=== PATIENT | female | born 1945 | race Caucasian/White ===

== ENCOUNTER 2019-02-14 17:41 | Emergency (ER) | payer OTHER ==
--- OUTSIDE RECORDS SUMMARY | 2019-02-14 17:43 | XMS REPORT ---
:1945 Author Organization [facility] Address [address] [place] [address] Dr. Greer [address] [place] [id number] Care Team Providers Name Role Phone Unavailable Unavailable Unavailable Problems This patient has no known problems. Allergies, Adverse Reactions, Alerts This patient has no known allergies or adverse reactions. Medications This patient has no known medications.
[2019-02-14] MEDS ORDERED: ONDANSETRON 4 MG/2 ML VIAL ONE (18:42)
[2019-02-14] MEDS ORDERED: NA CHLORIDE 0.9% 1,000 ML ONE (18:42)
[2019-02-14 18:48] LABS: Absolute Lymphocytes (CBC) 0.7 K/uL (0.7-4.9); Basophils % 0.5 % (0-1.3); Hematocrit 43.6 % (36.0-45.0); Lymphocytes % 9.6 % (15.3-44.8); MPV 8.3 fL (7.6-11.3); RBC Red Blood Cell Count 4.65 M/uL (3.86-4.86)
[2019-02-14 19:05] LABS: Bilirubin Direct 0.2 mg/dL (0-0.2); Bilirubin Total 0.8 mg/dL (0.2-1.0); Potassium 4.3 mmol/L (3.5-5.1); Protein, Total 7.5 g/dL (6.4-8.2)
[2019-02-14 20:12] LABS: Urine Blood NEGATIVE (NEG); Urine Glucose NEGATIVE (NEG); Urine Protein NEGATIVE (NEG)
--- NOTE | 2019-02-14 20:22 | EDPHYS ---
Physician Documentation [facility] Name: Sultana Heck Age: 73 yrs Sex: Female : 1945 Arrival Date: 02/14/2019 Time: 17:43 Bed 25 Private MD: Darrel Menard ED Physician Gabriel Gaffney HPI: 02/14 18:29 This 73 yrs old Female presents to ER via Ambulatory with complaints of jmm Diarrhea. 18:29 The patient presents to the emergency department with nausea, diarrhea. Onset: The jmm symptoms/episode began/occurred gradually, 2 day(s) ago. Possible causes: unknown. The symptoms are aggravated by nothing. The symptoms are alleviated by nothing. Associated signs and symptoms: Pertinent negatives: abdominal pain, dysuria, fever. This is a 73 yea rold female with a history of DM, GERD, that presents to the ED with complaints of nausea, diarrhea, weakness beginning 2 days ago. Patient has taken OTC medications with no relief. Denies fever or chills. . 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 - Social history:: Smoking status: Patient/guardian denies using. - Ebola Screening: : No symptoms or risks identified at this time. ROS: 18:29 Constitutional: Negative for fever, chills, and weight loss, Cardiovascular: Negative jmm for chest pain, palpitations, and edema, Respiratory: Negative for shortness of breath, cough, wheezing, and pleuritic chest pain. 18:29 Back: Negative for injury and pain. 18:29 Abdomen/GI: Positive for nausea, diarrhea. 18:29 Neuro: Positive for weakness. 18:29 All other systems are negative. Exam: 18:29 Constitutional: This is a well developed, well nourished patient who is awake, alert, jmm and in no acute distress. Head/Face: atraumatic. Eyes: EOMI, no conjunctival erythema appreciated ENT: Moist Mucus Membranes Neck: Trachea midline, Supple Chest/axilla: Normal chest wall appearance and motion. Cardiovascular: Regular rate and rhythm. No edema appreciated Respiratory: Normal respirations, no respiratory distress appreciated 18:29 Back: Normal ROM Skin: General appearance color normal MS/ Extremity: Moves all extremities, no obvious deformities appreciated, no edema noted to the lower extremities Neuro: Awake and alert, normal gait Psych: Behavior is normal, Mood is normal, Patient is cooperative and pleasant 18:29 Abdomen/GI: Inspection: abdomen appears normal, Bowel sounds: normal, Palpation: abdomen is soft and non-tender, in all quadrants. Vital Signs: 17:53 BP 138 / 70; Pulse 83; Resp 16; Temp 98; Pulse Ox 95% ; Weight 76.2 kg; Height 5 ft. 4 sv in. (162.56 cm); 19:00 BP 146 / 65; Pulse 78; Resp 16; Pulse Ox 100% on R/A; tr5 20:19 BP 132 / 73; Pulse 73; Resp 16; Pulse Ox 99% on R/A; tr5 17:53 Body Mass Index 28.84 (76.20 kg, 162.56 cm) sv MDM: 18:10 Patient medically screened. [facility] 20:18 Data reviewed: vital signs, nurses notes. Counseling: I had a detailed discussion with [facility] the patient and/or guardian regarding: the historical points, exam findings, and any diagnostic results supporting the discharge/admit diagnosis, lab results, the need for outpatient follow up, to return to the emergency department if symptoms worsen or persist or if there are any questions or concerns that arise at home. ED course: Patient states feeling much better. Abdomen non tender to palpation. Labs normal. Patient is advised to follow up with pcp and otherwise given strict return precautions. Patient understood and agrees with the plan of care. . 02/14 18:11 Order name: Basic Metabolic Panel; Complete Time: 19:07 [facility] 02/14 18:11 Order name: CBC with Diff; Complete Time: 18:50 [facility] 02/14 18:11 Order name: Creatinine for Radiology; Complete Time: 19:05 [facility] 02/14 18:11 Order name: Hepatic Function; Complete Time: 19:07 [facility] 02/14 18:11 Order name: Lipase; Complete Time: 19:07 [facility] 02/14 19:18 Order name: Troponin (emerg Dept Use Only); Complete Time: 20:03 [facility] 02/14 18:11 Order name: IV Saline Lock; Complete Time: 18:44 [facility] 02/14 18:11 Order name: Labs collected and sent; Complete Time: 18:44 [facility] 02/14 19:11 Order name: Urine Dipstick-Ancillary (obtain specimen); Complete Time: 19:57 [facility] 02/14 19:20 Order name: EKG - Nurse/Tech; Complete Time: 19:57 [facility] 02/14 19:45 Order name: Urine Dipstick--Ancillary (enter results); Complete Time: 20:16 ar5 Administered Medications: 18:43 Drug: NS 0.9% 1000 ml Route: IV; Rate: 1 bolus; Site: left antecubital; tr5 19:00 Follow up: Response: No adverse reaction; IV Status: Completed infusion; IV Intake: tr5 1000ml 18:43 Drug: Zofran 4 mg Route: IVP; Site: left antecubital; tr5 19:20 Follow up: Response: Nausea is decreased tr5 Disposition: 02/15 07:31 Co-signature as Attending Physician, Gabriel Gaffney MD I agree with the assessment and kdr plan of care. Disposition: 02/14/19 20:20 Discharged to Home. Impression: Diarrhea, unspecified. - Condition is Stable. - Discharge Instructions: Food Choices to Help Relieve Diarrhea, Adult, Diarrhea, Adult. - Prescriptions for Zofran ODT 4 mg Oral tablet,disintegrating - place 1 tablet by TRANSLINGUAL route every 4-6 hours; 20 tablet. - Medication Reconciliation Form, Thank You Letter, Antibiotic Education, Prescription Opioid Use form. - Follow up: Darrel Menard MD; When: 2 - 3 days; Reason: Recheck today's complaints, Continuance of care, Re-evaluation by your physician. Signatures: Dispatcher [employer] Ami Morales RN RN sv Rittger, Kevin, MD MD kdr Mickail, Joel, PA PA jmm Rodriguez, Tommie, RN RN tr5 Corrections: (The following items were deleted from the chart) 02/14 20:50 20:20 02/14/2019 20:20 Discharged to Home. Impression: Diarrhea, unspecified. Condition tr5 is Stable. Forms are Medication Reconciliation Form, Thank You Letter, Antibiotic Education, Prescription Opioid Use. Follow up: Darrel Menard; When: 2 - 3 days; Reason: Recheck today's complaints, Continuance of care, Re-evaluation by your physician. aamir
--- NOTE | 2019-02-14 20:22 | ER ---
Nurse's Notes [facility] Name: Sultana Heck Age: 73 yrs Sex: Female : 1945 Arrival Date: 02/14/2019 Time: 17:43 Bed 25 Private MD: Darrel Menard Diagnosis: Diarrhea, unspecified Presentation: 02/14 17:51 Presenting complaint: Patient states: diarrhea and nausea x 2 days, unable to keep sv fluids down. Transition of care: patient was not received from another setting of care. Onset of symptoms was February 12, 2019. Risk Assessment: Do you want to hurt yourself or someone else? Patient reports no desire to harm self or others. 17:51 Method Of Arrival: Ambulatory sv 17:51 Acuity: DONTE 3 sv 18:00 Initial Sepsis Screen: Does the patient meet any 2 criteria?. Initial Sepsis Screen: tr5 Does the patient have a suspected source of infection? No. Patient's initial sepsis screen is negative. 20:50 Care prior to arrival: None. 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 - Social history:: Smoking status: Patient/guardian denies using. - Ebola Screening: : No symptoms or risks identified at this time. Screenin:00 Abuse screen: Denies threats or abuse. Nutritional screening: No deficits noted. tr5 Tuberculosis screening: No symptoms or risk factors identified. Fall Risk None identified. Assessment: 18:00 General: Appears uncomfortable, Behavior is calm, cooperative, appropriate for age. tr5 Pain: Denies pain. 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 Cardiovascular: Heart tones present Capillary refill < 3 seconds Pulses are all present. Edema is absent. Respiratory: Airway is patent Respiratory effort is even, unlabored, Respiratory pattern is regular, symmetrical. GI: Reports diarrhea, nausea. : No signs and/or symptoms were reported regarding the genitourinary system. EENT: No signs and/or symptoms were reported regarding the EENT system. Derm: No signs and/or symptoms reported regarding the dermatologic system. Musculoskeletal: No signs and/or symptoms reported regarding the musculoskeletal system. 19:19 Reassessment: Troponin lab add on per Jose. sr5 20:17 Reassessment: Patient appears in no apparent distress at this time. Patient and/or tr5 family updated on plan of care and expected duration. Pain level reassessed. Patient is alert, oriented x 3, equal unlabored respirations, skin warm/dry/pink. Vital Signs: 17:53 BP 138 / 70; Pulse 83; Resp 16; Temp 98; Pulse Ox 95% ; Weight 76.2 kg; Height 5 ft. 4 sv in. (162.56 cm); 19:00 BP 146 / 65; Pulse 78; Resp 16; Pulse Ox 100% on R/A; tr5 20:19 BP 132 / 73; Pulse 73; Resp 16; Pulse Ox 99% on R/A; tr5 17:53 Body Mass Index 28.84 (76.20 kg, 162.56 cm) sv ED Course: 17:43 Patient arrived in ED. ag5 17:44 Darrel Menard MD is Private Physician. ag5 17:44 Ervin Engle, RN is Primary Nurse. tr5 17:45 Baldo Garcia PA is [facility]. [facility] 17:45 Gabriel Gaffney MD is Attending Physician. [facility] 17:52 Triage completed. sv 18:00 Placed in gown. Bed in low position. Call light in reach. tr5 18:00 Arm band placed on Patient placed. tr5 18:34 Initial lab(s) drawn, by me, sent to lab. Inserted saline lock: 22 gauge in left tr5 antecubital area, using aseptic technique. 19:25 Urine collected: clean catch specimen, clear, margie colored. jp3 19:25 Patient maintains SpO2 saturation greater than 95% on room air. jp3 19:57 EKG done, by ED staff, reviewed by Baldo HARRINGTON. jp3 19:57 Warm blanket given. Pillow given. Verbal reassurance given. Pulse ox on. NIBP on. jp3 20:20 Darrel Menard MD is Referral Physician. [facility] 20:49 No provider procedures requiring assistance completed. IV discontinued. tr5 Administered Medications: 18:43 Drug: NS 0.9% 1000 ml Route: IV; Rate: 1 bolus; Site: left antecubital; tr5 19:00 Follow up: Response: No adverse reaction; IV Status: Completed infusion; IV Intake: tr5 1000ml 18:43 Drug: Zofran 4 mg Route: IVP; Site: left antecubital; tr5 19:20 Follow up: Response: Nausea is decreased tr5 Intake: 19:00 IV: 1000ml; Total: 1000ml. tr5 Outcome: 20:20 Discharge ordered by . [facility] 20:49 Discharged to home ambulatory. tr5 20:49 Condition: stable 20:49 Discharge instructions given to patient, family, Instructed on discharge instructions, follow up and referral plans. medication usage, Demonstrated understanding of instructions, follow-up care, medications, Prescriptions given X 1. 20:50 Patient left the ED. tr5 Signatures: Ami Jones, RN RN Baldo Faulkner PA PA jmm Resecker, Sam RN RN 5 Terry Wong 3 Elisa Betancourt Ervin Blackburn, DEVYN RN tr5
[2019-02-14 20:58] VITALS: TEMP 98
[2019-02-14 21:01] VITALS: BP 132/73; O2SAT 99
--- NOTE | 2019-02-15 13:49 | EKG ---
Test Date: 2019-02-14 Test Time: 19:50:50 Cuff Runner: LATISHA MEASUREMENT RESULTS: Intervals: Rate: 70 OH: 152 QRSD: 78 QT: 396 QTc: 427 Dewitt: P: 12 OH: 152 QRS: 58 T: 77 INTERPRETIVE STATEMENTS: Normal sinus rhythm Normal ECG Compared to ECG 04/24/2017 10:39:04 Myocardial infarct finding no longer present Electronically Signed On 02-15-19 13:47:03 KNOTTER by Thang Fox
== END 2019-02-14 20:50 | disposition home or self-care (01) ==
LOC: ER 17:41
DX: R19.7 Diarrhea, unspecified (principal); I10 Essential (primary) hypertension; Z85.828 Personal history of other malignant neoplasm of skin; Z88.5 Allergy status to narcotic agent; Z88.8 Allergy status to other drugs, medicaments and biological substances
CPT/HCPCS: 93005; 85025; 80048; 36415; 80076; 81003; 84484; 83690; 96374; 99284; J7030; J2405

== ENCOUNTER 2019-04-17 10:03 | Emergency (ER) | payer OTHER ==
--- OUTSIDE RECORDS SUMMARY | 2019-04-17 10:05 | XMS REPORT ---
:1945 [facility] Address [address] [place] [address] Dr. Gre[address] [place] [id number] Care Team Providers Name Role Phone Unavailable Unavailable Unavailable Problems This patient has no known problems. Allergies, Adverse Reactions, Alerts This patient has no known allergies or adverse reactions. Medications This patient has no known medications.
[2019-04-17] MEDS ORDERED: TETANUS & DIPHTHERIA TOX,ADULT 0.5 ML VIAL ONE (12:23)
--- NOTE | 2019-04-17 12:40 | RAD REPORT ---
EXAM DESCRIPTION: CT - [id number] - 04/17/2019 12:27 pm CLINICAL HISTORY: Trauma, head and neck injury. PAIN COMPARISON: No comparisons TECHNIQUE: Axial 5 mm thick images of the head were obtained. Axial 2 mm thick images of the cervical spine were obtained with sagittal and coronal reconstruction images generated and reviewed. All CT scans are performed using dose optimization technique as appropriate and may include automated exposure control or mA/KV adjustment according to patient size. FINDINGS: CT HEAD WITHOUT CONTRAST: No acute hemorrhage, hydrocephalus or extra-axial collection is identified.Mild generalized brain atr ophy is present with mild periventricular and deep white matter chronic microvascular ischemic change s.No areas of brain edema or midline shift. The paranasal sinuses and mastoids are clear.The calvarium is intact. CT CERVICAL SPINE WITHOUT CONTRAST: No fracture or subluxation.Moderate lower cervical spondylosis.No prevertebral soft tissues swelling is identified. IMPRESSION: No acute intracranial or cervical spine findings. Moderate lower cervical degenerative changes.
--- NOTE | 2019-04-17 12:46 | RAD REPORT ---
EXAM DESCRIPTION: CT - CTFB CLINICAL HISTORY: FACIAL PAIN Fall, facial trauma and injury. COMPARISON: No comparisons TECHNIQUE: Axial 2 mm thick images of the face were obtained with sagittal and coronal reconstructio n images. All CT scans are performed using dose optimization technique as appropriate and may include automated exposure control or mA/KV adjustment according to patient size. FINDINGS: No acute facial bone fracture is seen.The mandible is intact. The globes and orbital contents are grossly unremarkable.The paranasal sinuses and mastoids are clear . IMPRESSION: Negative for facial bone fracture.
--- NOTE | 2019-04-17 13:03 | ER ---
Nurse's Notes [facility] Name: Sultana Heck Age: 73 yrs Sex: Female : 1945 Arrival Date: 04/17/2019 Time: 10:08 Bed 23 Private MD: Darrel Menard Diagnosis: Fall on same level from slipping, tripping and stumbling;Contusion of nose;Abrasion of nose;Abrasion of knee;Abrasion of left hand Presentation: 04/16 10:31 Chief complaint: Patient states: Tripped and fell forward. Abrasion on bridge of nose, ca1 L and R hand, R knee. Denies LOC, not on blood thinners. Coronavirus screen: The patient has NOT traveled to a country currently being monitored by the CDC within the last 14 days. The patient has NOT had contact with any known and/or suspected case of coronavirus. Ebola Screen: Patient negative for fever greater than or equal to 101.5 degrees Fahrenheit, and additional compatible Ebola Virus Disease symptoms Patient denies exposure to infectious person. Patient denies travel to an Ebola-affected area in the 21 days before illness onset. No symptoms or risks identified at this time. Initial Sepsis Screen: Does the patient meet any 2 criteria? No. Patient's initial sepsis screen is negative. Does the patient have a suspected source of infection? No. Patient's initial sepsis screen is negative. Risk Assessment: Do you want to hurt yourself or someone else? Patient reports no desire to harm self or others. Onset of symptoms was April 17, 2019. 10:31 Method Of Arrival: Ambulatory ca1 10:31 Acuity: DONTE 4 ca1 Triage Assessment: 10:39 General: Appears in no apparent distress. comfortable, Behavior is calm, cooperative, ca1 appropriate for age. Pain:. Neuro: Level of Consciousness is awake, alert, obeys commands, Oriented to person, place, time, situation. Historical: - Allergies: 10:39 Morphine; ca1 10:39 Reglan; ca1 - Home Meds: 10:39 amlodipine 5 mg tab 1 tab once daily for Hypertension [Active]; levothyroxine 88 mcg ca1 oral tab 1 tab once daily [Active]; metformin 500 mg Oral Tb24 1 tab 2 times per day [Active]; Prilosec 40 mg Oral cpDR 1 cap 2 times per day [Active]; Lipitor 40 mg oral tab 1 tab once daily [Active]; metoprolol tartrate 25 mg Oral tab 1 tab 2 times per day [Active]; aspirin 81 mg Oral chew 1 tab once daily [Active]; Cymbalta 30 mg oral cpDR 1 cap once daily [Active]; donepezil 5 mg oral tab 1 tab once daily [Active]; - PMHx: 10:39 arthritis in shel[place] feet; Depression; Diabetes - NIDDM; GERD; hemmoragic pancreatitis; ca1 Hypertension; Hypothyroidism; Hyperlipidemia; left trigeminal neuralgia; TIA; - PSHx: 10:39 Appendectomy; Tonsillectomy; Hysterectomy; Cholecystectomy; tumor removal from jaw; ca1 hand R; back surgery; bunionectomy; tummy tuck; 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 - Social history:: Smoking status: Patient denies any tobacco usage or history of. Screenin:27 Abuse screen: Denies threats or abuse. Denies injuries from another. Nutritional iw screening: No deficits noted. Tuberculosis screening: No symptoms or risk factors identified. Fall Risk Fall in past 12 months (25 points). Assessment: 12:26 General: Appears in no apparent distress. Behavior is calm, cooperative. Pain: iw Complains of pain in face and nose. Neuro: Level of Consciousness is awake, alert, obeys commands, Oriented to person, place, time, Moves all extremities. Full function Denies weakness dizziness. Cardiovascular: Patient's skin is warm and dry. Respiratory: Respiratory effort is even, unlabored, Respiratory pattern is regular, symmetrical. GI: No signs and/or symptoms were reported involving the gastrointestinal system. : No signs and/or symptoms were reported regarding the genitourinary system. Derm: Skin is healthy with good turgor. Musculoskeletal: Range of motion: intact in all extremities. Injury Description: Abrasion sustained to bridge of nose. Vital Signs: 10:31 BP 139 / 67; Pulse 66; Resp 17 S; Temp 97.1(TE); Pulse Ox 99% on R/A; Weight 74.84 kg ca1 (R); Height 5 ft. 4 in. (162.56 cm) (R); Pain 4/10; 12:14 BP 145 / 67 LA Sitting (auto/reg); Pulse 57; Temp 98(O); Pulse Ox 99% on R/A; jp3 10:31 Body Mass Index 28.32 (74.84 kg, 162.56 cm) ca1 ED Course: 10:08 Patient arrived in ED. mr 10:09 Darrel Menard MD is Private Physician. mr 10:35 Triage completed. ca1 10:39 Arm band placed on right wrist. ca1 11:59 Chante Perales FNP-C is [facility]. kb 11:59 Gabriel Gaffney MD is Attending Physician. kb 12:09 Corazon Bills, RN is Primary Nurse. iw 12:15 Patient maintains SpO2 saturation greater than 95% on room air. jp3 12:16 Bed in low position. Call light in reach. Warm blanket given. Verbal reassurance given. jp3 Pulse ox on. NIBP on. 12:29 CT Head C Spine In Process Unspecified. EDMS 12:29 CT Facial Bones W/O Con In Process Unspecified. EDMS 13:34 Dressings: non-adherent dressing x 1 nose. Wound care: to abrasion, located on bridge jp3 of nose was cleaned with soap and water, Patient tolerated well. 13:34 No provider procedures requiring assistance completed. Patient did not have IV access iw during this emergency room visit. Administered Medications: 12:22 Drug: Tetanus-Diphtheria Toxoid Adult 0.5 ml {Log Hauler: [employer]. Exp: iw 09/15/2019. Lot #: [id number]. } Route: IM; Site: left deltoid; Outcome: 13:02 Discharge ordered by . kb 13:34 Discharged to home ambulatory, with family. iw 13:34 Condition: good 13:34 Discharge instructions given to patient, family, Instructed on discharge instructions, follow up and referral plans. Demonstrated understanding of instructions, follow-up care. 13:35 Patient left the ED. iw Signatures: Dispatcher [employer] EDMS Chante Perales FNP-C FNP-Ckb Rivera, Mary Corazon Bills, RN RN iw Terry Wong jp3 Saira Brown RN RN ca1
--- NOTE | 2019-04-17 13:03 | EDPHYS ---
Physician Documentation [facility] Name: Sultana Heck Age: 73 yrs Sex: Female : 1945 Arrival Date: 04/17/2019 Time: 10:08 Bed 23 Private MD: Darrel Menard ED Physician Gabriel Gaffney HPI: 04/16 15:46 This 73 yrs old Female presents to ER via Ambulatory with complaints of Fall kb Injury. 15:46 Details of fall: The patient fell from an upright position, while walking. Onset: The kb symptoms/episode began/occurred just prior to arrival. Associated injuries: The patient sustained injury to the head, abrasion, contusion, medial aspect of left hand, abrasion, right knee, abrasion. Severity of symptoms: At their worst the symptoms were mild, in the emergency department the symptoms are unchanged. The patient has not experienced similar symptoms in the past. The patient has not recently seen a physician. Historical: - Allergies: 10:39 Morphine; ca1 10:39 Reglan; ca1 - Home Meds: 10:39 amlodipine 5 mg tab 1 tab once daily for Hypertension [Active]; levothyroxine 88 mcg ca1 oral tab 1 tab once daily [Active]; metformin 500 mg Oral Tb24 1 tab 2 times per day [Active]; Prilosec 40 mg Oral cpDR 1 cap 2 times per day [Active]; Lipitor 40 mg oral tab 1 tab once daily [Active]; metoprolol tartrate 25 mg Oral tab 1 tab 2 times per day [Active]; aspirin 81 mg Oral chew 1 tab once daily [Active]; Cymbalta 30 mg oral cpDR 1 cap once daily [Active]; donepezil 5 mg oral tab 1 tab once daily [Active]; - PMHx: 10:39 arthritis in [place] feet; Depression; Diabetes - NIDDM; GERD; hemmoragic pancreatitis; ca1 Hypertension; Hypothyroidism; Hyperlipidemia; left trigeminal neuralgia; TIA; - PSHx: 10:39 Appendectomy; Tonsillectomy; Hysterectomy; Cholecystectomy; tumor removal from jaw; ca1 hand R; back surgery; bunionectomy; tummy tuck; 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 - Social history:: Smoking status: Patient denies any tobacco usage or history of. ROS: 15:45 Constitutional: Negative for fever, chills, and weight loss, Neck: Negative for injury, kb pain, and swelling, Cardiovascular: Negative for chest pain, palpitations, and edema, Respiratory: Negative for shortness of breath, cough, wheezing, and pleuritic chest pain, Abdomen/GI: Negative for abdominal pain, nausea, vomiting, diarrhea, and constipation, Back: Negative for injury and pain, MS/Extremity: Negative for injury and deformity, Neuro: Negative for headache, weakness, numbness, tingling, and seizure. 15:45 Skin: Positive for abrasion(s), avulsion, of the right knee and medial aspect of left hand and bridge of nose. Exam: 15:44 Constitutional: This is a well developed, well nourished patient who is awake, alert, kb and in no acute distress. Head/Face: Normocephalic, atraumatic. Eyes: Pupils equal round and reactive to light, extra-ocular motions intact. Lids and lashes normal. Conjunctiva and sclera are non-icteric and not injected. Cornea within normal limits. Periorbital areas with no swelling, redness, or edema. ENT: Nares patent. No nasal discharge, no septal abnormalities noted. Tympanic membranes are normal and external auditory canals are clear. Oropharynx with no redness, swelling, or masses, exudates, or evidence of obstruction, uvula midline. Mucous membranes moist. Neck: Trachea midline, no thyromegaly or masses palpated, and no cervical lymphadenopathy. Supple, full range of motion without nuchal rigidity, or vertebral point tenderness. No Meningismus. Chest/axilla: Normal chest wall appearance and motion. Nontender with no deformity. No lesions are appreciated. Cardiovascular: Regular rate and rhythm with a normal S1 and S2. No gallops, murmurs, or rubs. Normal PMI, no JVD. No pulse deficits. Respiratory: Lungs have equal breath sounds bilaterally, clear to auscultation and percussion. No rales, rhonchi or wheezes noted. No increased work of breathing, no retractions or nasal flaring. Abdomen/GI: Soft, non-tender, with normal bowel sounds. No distension or tympany. No guarding or rebound. No evidence of tenderness throughout. Back: No spinal tenderness. No costovertebral tenderness. Full range of motion. MS/ Extremity: Pulses equal, no cyanosis. Neurovascular intact. Full, normal range of motion. Neuro: Awake and alert, GCS 15, oriented to person, place, time, and situation. Cranial nerves II-XII grossly intact. Motor strength 5/5 in all extremities. Sensory grossly intact. Cerebellar exam normal. Normal gait. 15:44 Skin: injury, abrasion(s), small abrasion noted, of the medial aspect of left hand and right knee, avulsion(s), a small of the bridge of nose, contusion(s), that are superficial, of the bridge of nose. Vital Signs: 10:31 BP 139 / 67; Pulse 66; Resp 17 S; Temp 97.1(TE); Pulse Ox 99% on R/A; Weight 74.84 kg ca1 (R); Height 5 ft. 4 in. (162.56 cm) (R); Pain 4/10; 12:14 BP 145 / 67 LA Sitting (auto/reg); Pulse 57; Temp 98(O); Pulse Ox 99% on R/A; jp3 10:31 Body Mass Index 28.32 (74.84 kg, 162.56 cm) ca1 MDM: 12:00 Patient medically screened. kb 12:59 Data reviewed: vital signs, nurses notes. Data interpreted: Pulse oximetry: on room air kb is 99 %. Interpretation: normal. Counseling: I had a detailed discussion with the patient and/or guardian regarding: the historical points, exam findings, and any diagnostic results supporting the discharge/admit diagnosis, radiology results, the need for outpatient follow up, a family practitioner, to return to the emergency department if symptoms worsen or persist or if there are any questions or concerns that arise at home. 04/16 12:07 Order name: CT Head C Spine; Complete Time: 12:58 kb 04/16 12:07 Order name: CT Facial Bones W/O Con; Complete Time: 12:58 kb Administered Medications: 12:22 Drug: Tetanus-Diphtheria Toxoid Adult 0.5 ml {Rn Transfer: [employer]. Exp: iw 09/15/2019. Lot #: [id number]. } Route: IM; Site: left deltoid; Disposition: 16:26 Co-signature as Attending Physician, Gabriel Gaffney MD I agree with the assessment and kdr plan of care. Disposition: 04/17/19 13:02 Discharged to Home. Impression: Fall on same level from slipping, tripping and stumbling, Contusion of nose, Abrasion of nose, Abrasion of knee, Abrasion of left hand. - Condition is Stable. - Discharge Instructions: Abrasion, [id number], Facial or Scalp Contusion, [id number]. - Medication Reconciliation Form, Thank You Letter, Antibiotic Education, Prescription Opioid Use form. - Follow up: Emergency Department; When: As needed; Reason: Worsening of condition. Follow up: Private Physician; When: 2 - 3 days; Reason: Recheck today's complaints, Continuance of care, Re-evaluation by your physician. Signatures: Dispatcher [employer] EDMS Chante Perales, ELASTIC ATTACHER CHAINSTITCH-C ELASTIC ATTACHER CHAINSTITCH-Gabriel Salcido MD MD [facility] Corazon Bills RN RN iw Saira Brown RN RN ca1 Corrections: (The following items were deleted from the chart) 13:35 13:02 04/17/2019 13:02 Discharged to Home. Impression: Fall on same level from iw slipping, tripping and stumbling; Contusion of nose; Abrasion of nose; Abrasion of knee; Abrasion of left hand. Condition is Stable. Forms are Medication Reconciliation Form, Thank You Letter, Antibiotic Education, Prescription Opioid Use. Follow up: Emergency Department; When: As needed; Reason: Worsening of condition. Follow up: Private Physician; When: 2 - 3 days; Reason: Recheck today's complaints, Continuance of care, Re-evaluation by your physician. kb 15:46 15:44 Skin: injury, abrasion(s), small abrasion noted, of the medial aspect of left kb hand and right knee, avulsion(s), a small of the bridge of nose, kb
[2019-04-17 13:46] VITALS: O2SAT 99
[2019-04-17 14:19] VITALS: BP 145/67; TEMP 98
== END 2019-04-17 13:35 | disposition home or self-care (01) ==
LOC: ER 10:03
DX: S00.31XA Abrasion of nose, initial encounter (principal); S80.212A Abrasion, left knee, initial encounter; S60.512A Abrasion of left hand, initial encounter; W01.0XXA Fall on same level from slipping, tripping and stumbling without subsequent striking against object, initial encounter; Y93.01 Activity, walking, marching and hiking; Y92.9 Unspecified place or not applicable; Z79.82 Long term (current) use of aspirin; Z85.828 Personal history of other malignant neoplasm of skin; I10 Essential (primary) hypertension; E11.9 Type 2 diabetes mellitus without complications; F32.9 Major depressive disorder, single episode, unspecified; E03.9 Hypothyroidism, unspecified
CPT/HCPCS: 70450; 70486; 72125; 76377; 90471; 90714; 99284

== ENCOUNTER 2020-12-30 08:55 | Emergency (ER) | payer OTHER ==
--- OUTSIDE RECORDS SUMMARY | 2020-12-30 08:58 | XMS REPORT | Clinical Summary ---
:1945 Author Organization [facility] MD [facility] Address [address] [place] [address] Care Team Providers Name Role Phone Kristina Lua MD Primary Care Provider Darrel Menard MD Unavailable Allergies Active Allergy Reactions Severity Noted Date Comments Morphine Sulfate Other (See Comments) 10/18/2016 Sev er vomiting Metoclopramide Hcl Other (See Comments) 10/18/2016 N ausea, drowsy, stomach cramps Medications Medication Sig Dispensed Refills Start Date End Date Status atorvastatin (LIPITOR) Take 40 mg by 0 08/06/2016 Active 20 mg tablet mouth daily. amLODIPine (NORVASC) 5 Take 1 tablet by 0 09/21/2016 Active mg tablet mouth daily. omeprazole (PriLOSEC) Take 40 mg by 0 Active 40 MG capsule mouth 2 (two) times a day before meals. levothyroxine Take 112 mcg by 0 Active (SYNTHROID, LEVOTHROID) mouth daily. 125 mcg tablet metoprolol tartrate Take 12.5 mg by 0 Active (LOPRESSOR) 25 mg mouth twice tablet daily. b complex vitamins Take 1 tablet by 0 Active tablet mouth daily. biotin 5,000 mcg TbDL Dissolve 1 tablet 0 Active on the tongue daily. fish oil-omega-3 fatty Take 1 g by mouth 0 Active acids 300-1,000 mg twice daily. capsule ergocalciferol (VITAMIN Take 50,000 Units 0 Active D2) 50,000 units by mouth. capsule cholecalciferol, Take 1,000 Units 0 Active vitamin D3, 1,000 units by mouth daily. tablet vitamin E 1,000 units Take 1,000 Units 0 Active capsule by mouth daily. metFORMIN Take 1 tablet by 6 10/26/2016 Ac tive (GLUCOPHAGE-XR) 500 mg mouth 2 (two) 24 hr tablet times a day with meals. ibuprofen Take 200 mg by 0 Activ e (ADVIL,MOTRIN) 200 mg mouth as needed. tablet DULoxetine (CYMBALTA) Take 30 mg by 0 09/22/2017 Active 30 mg capsule mouth daily. melatonin 3 mg tablet 3 mg nightly as 0 Active needed. psyllium, aspartame, Take by mouth. 0 Active (METAMUCIL) powd powder aspirin 81 mg EC tablet Take 81 mg by 0 Active mouth daily. multivitamin Take 1 tablet by 0 Active (THERAGRAN) tablet mouth daily. Active Problems Problem Noted Date Fatty liver Mass of soft tissue Overview: Calcified Soft Tissue Masses in the Smal l bowel mesentery Encounters Date Type Specialty Care Team Description 05/23/2020 Orders Only Infectious Diseases Flaco Haq MD S ARS-CoV-2 vaccination after 12/31/2019 Surgical History Surgery Date Site/Laterality Comments APPENDECTOMY 02/13/1963 - 02/13/1964 BACK SURGERY 02/14/2000 - for sciatic nerv e 02/12/2001 impingment COLONOSCOPY OOPHORECTOMY 02/13/1981 - 02/12/1982 CHOLECYSTECTOMY 02/14/2000 - 02/12/2001 UPPER GASTROINTESTINAL ENDOSCOPY TONSILLECTOMY 02/13/1966 - 02/12/1967 MANDIBLE SURGERY 02/13/1979 - Benign Tumor in Jaw 02/13/1980 HYSTERECTOMY 02/13/1981 - for bleeding, ov xiomy 02/12/1982 intact BUNIONECTOMY 02/13/1989 - Bilateral 02/12/1990 HEEL SPUR SURGERY Bilateral multiple REDUCTION MAMMAPLASTY 02/13/2007 - Bilateral 02/13/2008 CARDIAC CATHETERIZATION 04/25/2017 OSI [place] HAND SURGERY Right 5 Broken fingers/knuckles after injury ABDOMINOPLASTY 02/13/2007 - Midline 02/13/2008 SKIN CANCER EXCISION 02/13/2010 - BCC 02/12/2011 FOOT NEUROMA SURGERY 02/13/2010 - Left 02/12/2011 CATARACT EXTRACTION, 02/14/2016 - Left 7, Right BILATERAL 02/12/2017 09/06/16 CARDIAC CATHETERIZATION 04/25/2017 no stent s BREAST BIOPSY 02/13/2014 - Right benign 02/12/2015 Medical History Medical History Date Comments Hypertension Hyperlipidemia Hearing loss Fatty liver NOW Gastric reflux 1996 Gallstone 2000 HAD HEMORRHAGIC PANC REATITIS Pancreatitis 2000 HEMORRHAGIC PANCRETI TIS Kidney failure 2000 WITH HEMORRHAGIC THOMAS CREATITIS Menopause Blood transfusion, without reported diagnosis Fracture 1988 FELL AND BROKE/FRACT URED 4 KNUCKLES OF RIGHT HAND Presence of other specified device 2010 PLATE AND PIN IN LARGE TOE ON LEFT FOOT AND PIN IN NEXT TOE Disorder of thyroid gland 1994 Diabetes mellitus 2015 Depressive disorder 2000 BEING TREATED Basal cell carcinoma of skin of nose 2010 Family History Medical History Relation Name Comments Coronary heart disease Father ACE SANDOVAL (CHD) Diabetes Father ACE SANDOVAL Hypertension Father ACE SANDOVAL -Breast cancer Maternal Aunt Other Maternal Grandfather breast mass s/p mastectomy, ? ca ncer Ovarian cancer Neg Hx Pancreatic cancer Neg Hx Relation Name Status Comments Father ACE SANDOVAL Maternal Aunt Maternal Grandfather Social History Tobacco Use Types Packs/Day Years Used Date Former Smoker 3 5 09/13/1962 - 0 04/14/1867 Smokeless Tobacco: Never Used Alcohol Use Standard Drinks/Week Comments Yes 0 (1 standard drink = 0.6 oz pure alcoho l) Sex Assigned at Date Recorded Not on file Obstetrics History Para Term AB IAB SAB Ectopic Multiple Living Live Births 2 2 Date Outcome GA Total Labor/2nd/3rd Weight Sex Delivery Anes PTL June A 1 A5 Name Clin Labor Para Para Comments Menarche - age 13 Menopause - surgical (hysterectomy) 1982 Parity - age 23, Hormones - estrogen replacement, 1982 un til 2012 OCPs - 20 years - none Last Filed Vital Signs Not on file Plan of Treatment Health Maintenance Due Date Last Done Comments COVID-19 Vaccination (1) 1958 Results Not on fileafter 12/31/2019 Insurance Payer Benefit Plan / Subscriber ID Effective Dates Phone Addre ss Type Group AETNA MEDICARE AETNA MEDICARE [id number] 2013-Edu [place] [id number] Medicare PPO t [place] [id number] Care Teams Historical Interpreter Relationship Specialty Start Date End Date Kristina Lua MD PCP - General Breast Medical 10/06/16 [address] [facility] [place] [address] Darrel Menard MD PCP - External Follow Up Internal Medicine 10/18/[address] [place] [address] [place] [id number]
--- OUTSIDE RECORDS SUMMARY | 2020-12-30 09:00 | XMS REPORT | Continuity of Care Document ---
:1945 Author Organization [facility] t Address [address] [place] [address] Care Team Providers Name Role Phone Stoney JEFFERS Primary Care Physician Westley Ferrell Attending Clinician Unavailable Laisha SABA Attending Clinician Unavailable Taylor JEFFERS, Laisha Attending Clinician Severino JEFFERS Attending Clinician Doctor Unassigned, Name Attending Clinician Unavailable UNDEFINED Admitting Clinician Unavailable Payers Payer Name Policy Type Policy Effective Date Expiration Date Sour ce Number AETNA MEDICAREAETNA [id number] 2013 MD Jordana bautista MEDICARE 00:00:00 [id number], [place] [address]Medicare Problems Condition Condition Condition Status Onset Resolution Last Treating Co mments Source Name Details Category Date Date Treatment Clinician Date 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 Calcified Soft Tissue Masses in the Small bowel mesentery Allergies, Adverse Reactions, Alerts Allergy Allergy Status Severity Reaction(s) Onset Inactive Treating Comm ents Source Name Type Date Date Clinician metoclop DA Active [facility] ramide 08-01 [place] HCl 00:00: [facility] morphine DA Active [facility] 08-01 [place] 00:00: [facility] metoclop DA Active [place] N/V,DROWSY,[facility] ramide TOMACH 08-01 [place] HCl CRAMPS 00:00: [facility] 00 [facility] morphine DA Active [facility] VOMITING 08-01 [place] 00:00: [facility] Adhesive DA Active [facility] Bandage 08-01 [place] 00:00: [facility] 00 [facility] Adhesive DA Active [facility] Bandage 08-01 [place] 00:00: [facility] 00 [facility] Morphine Propensi Active Nausea Univer s ty to and/or 2-25 ity of adverse Vomiting 00:00: [place] reaction Medical s Branch Metoclop Propensi Active Nausea Univer s ramide ty to and/or 2-25 ity of Hcl adverse Vomiting 00:00: [place] reaction 00 Medical s Branch MORPHINE DRUG Active N/V Univers INGREDI 2-25 ity of 00:00: [place] 00 Medical Branch METOCLOP DRUG Active N/V Univers RAMIDE INGREDI 2-25 ity of HCL 00:00: [place] 00 Medical Branch Family History Family Member Diagnosis Comments Start Date Stop Date Source Natural father Coronary heart disease MD Melendez (CHD) Natural father Diabetes MD Chad palmer Natural father Hypertension Wilmer son Maternal aunt -Breast cancer MD Callaway rsandrea Maternal grandfather Other MD Nato packer Family member Ovarian cancer MD [place] godinez Family member Pancreatic cancer MD A nderson Social History Social Habit Start Date Stop Date Quantity Comments Source Exposure to Not sure University of SARS-CoV-2 (event) [facility] Alcohol intake 2017-11-03 2017-11-03 Current drinker MD Jordana bautista 00:00:00 00:00:00 of alcohol (finding) Cigarettes smoked 2016-10-18 2016-10-18 MD Nilton godinez current (pack per 00:00:00 00:00:00 day) - Reported Cigarette 2016-10-18 2016-10-18 MD Melendez pack-years 00:00:00 00:00:00 Tobacco use and 2016-10-18 2016-10-18 Smokeless MD Mujica on exposure 00:00:00 00:00:00 tobacco non-user Sex Ass[birth year] MD Mujica on 00:00:00 00:00:00 History of tobacco 1962-09-13 1867-04-14 Current smoker MD Melendez use 00:00:00 00:00:00 Smoking Status Start Date Stop Date Source Former smoker 2016-04-07 00:00:00 2016-04-07 00:00:00 [facility] Medications Ordered Filled Start Stop Current Ordering Indication Dosage Frequency Signature Comments Components Source Medication Medication Date Date Medication? Clinician (SIG) Name Name OMEPRAZOLE Yes Take by [employer] vers (PRILOSEC 6-02 mouth. ity of ORAL) 16:07: [place] 52 Medical Branch AMLODIPINE Yes Take by Uni vers BESYLATE 6-02 mouth. ity of (AMLODIPINE 16:07: [place] ORAL) 52 Medical Branch metoprolol Yes 25mg Take 25 mg U nivers succinate 6-02 by mouth ity of XL (TOPROL 16:07: daily. [place] XL) 25 mg 52 Medical 24 hr Branch tablet atorvastati Yes 20mg Take 20 mg Univers n (LIPITOR) 6-02 by mouth ity of 20 mg 16:07: at [place] tablet 52 bedtime. Medical Branch OMEGA-3 Yes Take by [facility] s FATTY 6-02 mouth. ity of ACIDS/FISH 16:07: [place] OIL (OMEGA 52 Medical 3 FISH OIL Branch ORAL) PSYLLIUM Yes Take by [facility] rs HUSK/ASPART 6-02 mouth. ity of MARGARITA 16:07: [place] (METAMUCIL 52 Medical MULTIHEALTH Branch FIBER ORAL) melatonin 3 0 Yes 3mg Take 3 mg U nivers mg tablet 6-02 by mouth ity of 16:07: at [place] [address] bedtime. Medical Branch GLUCOSAMINE 0 Yes Take by Un santiago SULFATE 6-02 mouth. ity of (GLUCOSAMIN 16:07: [place] E ORAL) 52 Medical Branch DULOXETINE 0 Yes Take by Uni vers HCL 6-02 mouth. ity of (CYMBALTA 16:07: [place] ORAL) 52 Medical Branch OMEPRAZOLE 0 Yes Take by Uni vers (PRILOSEC 6-02 mouth. ity of ORAL) 16:07: [place] 52 Medical Branch AMLODIPINE 0 Yes Take by Uni vers BESYLATE 6-02 mouth. ity of (AMLODIPINE 16:07: [place] ORAL) 52 Medical Branch metoprolol 0 Yes 25mg Take 25 mg U nivers succinate 6-02 by mouth ity of XL (TOPROL 16:07: daily. [place] XL) 25 mg 52 Medical 24 hr Branch tablet atorvastati Yes 20mg Take 20 mg Univers n (LIPITOR) 6-02 by mouth ity of 20 mg 16:07: at [place] [address] bedtime. Medical Branch OMEGA-3 Yes Take by [facility] s FATTY 6-02 mouth. ity of ACIDS/FISH 16:07: [place] OIL (OMEGA 52 Medical 3 FISH OIL Branch ORAL) PSYLLIUM Yes Take by [facility] rs HUSK/ASPART 6-02 mouth. ity of MARGARITA 16:07: [place] (METAMUCIL 52 Medical MULTIHEALTH Branch FIBER ORAL) melatonin 3 0 Yes 3mg Take 3 mg U nivers mg tablet 6-02 by mouth ity of 16:07: at [place] [address] bedtime. Medical Branch GLUCOSAMINE 0 Yes Take by Un santiago SULFATE 6-02 mouth. ity of (GLUCOSAMIN 16:07: [place] E ORAL) 52 Medical Branch DULOXETINE 0 Yes Take by Uni vers HCL 6-02 mouth. ity of (CYMBALTA 16:07: [place] ORAL) 52 Medical Branch OMEPRAZOLE 0 Yes Take by Uni vers (PRILOSEC 6-02 mouth. ity of ORAL) 16:07: [place] 52 Medical Branch AMLODIPINE Yes Take by Uni vers BESYLATE 6-02 mouth. ity of (AMLODIPINE 16:07: [place] ORAL) 52 Medical Branch metoprolol 0 Yes 25mg Take 25 mg U nivers succinate 6-02 by mouth ity of XL (TOPROL 16:07: daily. [place] XL) 25 mg 52 Medical 24 hr Branch tablet atorvastati Yes 20mg Take 20 mg Univers n (LIPITOR) 6-02 by mouth ity of 20 mg 16:07: at [place] tablet 52 bedtime. Medical Branch OMEGA-3 Yes Take by [facility] s FATTY 6-02 mouth. ity of ACIDS/FISH 16:07: [place] OIL (OMEGA 52 Medical 3 FISH OIL Branch ORAL) PSYLLIUM Yes Take by [facility] rs HUSK/ASPART 6-02 mouth. ity of MARGARITA 16:07: [place] (METAMUCIL 52 Medical MULTIHEALTH Branch FIBER ORAL) melatonin 3 Yes 3mg Take 3 mg U nivers mg tablet 602 by mouth ity of 16:07: at [place] [address] bedtime. Medical Branch GLUCOSAMINE Yes Take by Un santiago SULFATE 6-02 mouth. ity of (GLUCOSAMIN 16:07: [place] E ORAL) 52 Medical Branch DULOXETINE Yes Take by Uni vers HCL 6-02 mouth. ity of (CYMBALTA 16:07: [place] ORAL) 52 Medical Branch OMEPRAZOLE Yes Take by Uni vers (PRILOSEC 6-02 mouth. ity of ORAL) 16:07: [place] 52 Medical Branch AMLODIPINE Yes Take by Uni vers BESYLATE 6-02 mouth. ity of (AMLODIPINE 16:07: [place] ORAL) 52 Medical Branch metoprolol Yes 25mg Take 25 mg U nivers succinate 6-02 by mouth ity of XL (TOPROL 16:07: daily. [place] XL) 25 mg 52 Medical 24 hr Branch tablet atorvastati 0 Yes 20mg Take 20 mg Univers n (LIPITOR) 6-02 by mouth ity of 20 mg 16:07: at [place] tablet 52 bedtime. Medical Branch OMEGA-3 Yes Take by Univer s FATTY 6-02 mouth. ity of ACIDS/FISH 16:07: [place] OIL (OMEGA 52 Medical 3 FISH OIL Branch ORAL) PSYLLIUM Yes Take by [facility] rs HUSK/ASPART 07-15 mouth. ity of MARGARITA 16:07: [place] (METAMUCIL 52 Medical MULTIHEALTH Branch FIBER ORAL) melatonin 3 Yes 3mg Take 3 mg U nivers mg tablet 07-15 by mouth ity of 16:07: at [place] 52 bedtime. Medical Branch GLUCOSAMINE Yes Take by Un santiago SULFATE - mouth. ity of (GLUCOSAMIN 16:07: [place] E ORAL) 52 Medical Branch DULOXETINE Yes Take by Uni vers HCL - mouth. ity of (CYMBALTA 16:07: [place] ORAL) 52 Medical Branch triamcinolo Yes [id number] Apply to [facility] 3- area(s) 2 ity of acetonide 00:00: (two) [place] 0.1 % 00 times Medical ointment daily. Branch triamcinolo Yes [id number] Apply to [facility] 3- area(s) 2 ity of acetonide 00:00: (two) [place] 0.1 % 00 times Medical ointment daily. Branch triamcinolo Yes [id number] Apply to [facility] 3- area(s) 2 ity of acetonide 00:00: (two) [place] 0.1 % 00 times Medical ointment daily. Branch triamcinolo Yes [id number] Apply to [facility] 3- area(s) 2 ity of acetonide 00:00: (two) [place] 0.1 % 00 times Medical ointment daily. Branch triamcinolo Yes [id number] Apply to [facility] 3- area(s) 2 ity of acetonide 00:00: (two) [place] 0.1 % 00 times Medical ointment daily. Branch triamcinolo Yes [id number] Apply to [facility] 3- area(s) 2 ity of acetonide 00:00: (two) [place] 0.1 % 00 times Medical ointment daily. Branch triamcinolo Yes [id number] Apply to [facility] 3- area(s) 2 ity of acetonide 00:00: (two) [place] 0.1 % 00 times Medical ointment daily. Branch triamcinolo 2019-0 Yes [id number] Apply to Univers ne 3-07 area(s) 2 ity of acetonide 00:00: (two) [place] 0.1 % 00 times Medical ointment daily. Branch triamcinolo 2019-0 Yes [id number] Apply to Univers ne 3-07 area(s) 2 ity of acetonide 00:00: (two) [place] 0.1 % 00 times Medical ointment daily. Branch fluticasone 2018- Yes Apply to U nivers 0.05 % 2-07 area(s) 2 ity of cream 00:00: (two) [place] 00 times Medical daily. Branch fluticasone 2017- Yes Apply to U nivers 0.05 % 2-07 area(s) 2 ity of cream 00:00: (two) [place] 00 times Medical daily. Branch fluticasone 2017- Yes Apply to U nivers 0.05 % 2-07 area(s) 2 ity of cream 00:00: (two) [place] 00 times Medical daily. Branch fluticasone 2017- Yes Apply to U nivers 0.05 % 2-07 area(s) 2 ity of cream 00:00: (two) [place] 00 times Medical daily. Branch fluticasone 2017- Yes Apply to U nivers 0.05 % 2-07 area(s) 2 ity of cream 00:00: (two) [place] 00 times Medical daily. Branch fluticasone 2017- Yes Apply to U nivers 0.05 % 2-07 area(s) 2 ity of cream 00:00: (two) [place] 00 times Medical daily. Branch fluticasone 2017- Yes Apply to U nivers 0.05 % 2-07 area(s) 2 ity of cream 00:00: (two) [place] 00 times Medical daily. Branch fluticasone 2018- Yes Apply to U nivers 0.05 % 2-07 area(s) 2 ity of cream 00:00: (two) [place] 00 times Medical daily. Branch fluticasone 2017- Yes Apply to U nivers 0.05 % 2-07 area(s) 2 ity of cream 00:00: (two) [place] 00 times Medical daily. Branch ibuprofen 2018-0 Yes 200mg Take 200 MD (ADVIL,MOTR 9-30 mg by Anderso IN) 200 mg 14:24: mouth as n tablet 56 needed. ergocalcife 2018- Yes [id number] Take MD rol 9-30 50,000 Anderso (VITAMIN 14:24: Units by n D2) 50,000 55 mouth. units capsule omeprazole 2018- Yes 40mg Take 40 mg M D (PriLOSEC) 9-21 by mouth 2 And erso 40 MG 11:45: (two) n capsule 35 times a day before meals. levothyroxi 2018- Yes 112ug Take 112 M D ne 9-21 mcg by Anderso (SYNTHROID, 11:45: mouth n LEVOTHROID) 35 daily. 125 mcg tablet metoprolol 2017- Yes 12.5mg Take 12.5 MD tartrate 9-21 mg by Anderso (LOPRESSOR) 11:45: mouth n 25 mg 35 twice tablet daily. b complex 2017- Yes 1{tbl} Take 1 MD vitamins 9-21 tablet by [place] o tablet 11:45: mouth n 35 daily. biotin 2018-0 Yes 1{tbl} Dissolve 1 MD 5,000 mcg 9-21 tablet on [place] so TbDL 11:45: the tongue n 35 daily. fish 2017- Yes 1g Take 1 g MD oil-omega-3 - by mouth [place] rso fatty acids 11:45: twice n 300-1,000 35 daily. mg capsule cholecalcif 2018 Yes 1000U Take 1,000 MD claire, 9-21 Units by Anderso vitamin D3, 11:45: mouth n 1,000 units 35 daily. tablet vitamin E 2018-0 Yes 1000U Take 1,000 M D 1,000 units 9-21 Units by [place] rso capsule 11:45: mouth n 35 daily. melatonin 3 2018-0 Yes 3mg 3 mg MD mg tablet 9-21 nightly as [place] rso 11:45: needed. n 35 psyllium, 2018-0 Yes Take by MD aspartame, 9-21 mouth. Anderso (METAMUCIL) 11:45: n powd powder 35 aspirin 81 2018-0 Yes 81mg Take 81 mg M D mg EC -21 by mouth Anderso tablet 11:45: daily. n 35 multivitami 2018-0 Yes 1{tbl} Take 1 MD n 9-21 tablet by Anderso (THERAGRAN) 11:45: mouth n tablet 35 daily. DULoxetine 2018-0 Yes 30mg Take 30 mg M D (CYMBALTA) 8-10 by mouth [place] so 30 mg 00:00: daily. n capsule 00 meloxicam 2018-0 Yes TAKE ONE Univ ers 15 mg 2-06 TABLET BY ity of tablet 00:00: MOUTH ONCE DAILY WITH Medical FOOD OR Branch MILK meloxicam 2017-0 Yes TAKE ONE Univ ers 15 mg 2-06 TABLET BY ity of tablet 00:00: MOUTH ONCE DAILY WITH Medical FOOD OR Branch MILK meloxicam 2017-0 Yes TAKE ONE Univ ers 15 mg 2-06 TABLET BY ity of tablet 00:00: MOUTH ONCE DAILY WITH Medical FOOD OR Branch MILK meloxicam 2017-0 Yes TAKE ONE Univ ers 15 mg 2-06 TABLET BY ity of tablet 00:00: MOUTH ONCE DAILY WITH Medical FOOD OR Branch MILK meloxicam 2018-0 Yes TAKE ONE Univ ers 15 mg 2-06 TABLET BY ity of tablet 00:00: MOUTH ONCE DAILY WITH Medical FOOD OR Branch MILK meloxicam 2018-0 Yes TAKE ONE Univ ers 15 mg 2-06 TABLET BY ity of tablet 00:00: MOUTH ONCE DAILY WITH Medical FOOD OR Branch MILK meloxicam 2018-0 Yes TAKE ONE Univ ers 15 mg 2-06 TABLET BY ity of tablet 00:00: MOUTH ONCE DAILY WITH Medical FOOD OR Branch MILK meloxicam 2018-0 Yes TAKE ONE Univ ers 15 mg 2-06 TABLET BY ity of tablet 00:00: MOUTH ONCE DAILY WITH Medical FOOD OR Branch MILK meloxicam 2018-0 Yes TAKE ONE Univ ers 15 mg 2-06 TABLET BY ity of tablet 00:00: MOUTH ONCE 00 DAILY WITH Medical FOOD OR Branch MILK metFORMIN 2017-0 Yes 1{tbl} Take 1 MD (GLUCOPHAGE 9-13 tablet by And erso -XR) 500 mg 00:00: mouth 2 n 24 hr 00 (two) tablet times a day with meals. amLODIPine 2017-0 Yes 1{tbl} Take 1 MD (NORVASC) 5 8-09 tablet by And erso mg tablet 00:00: mouth n 00 daily. atorvastati 2017-0 Yes 40mg Take 40 mg MD n (LIPITOR) 6-24 by mouth [place] rso 20 mg 00:00: daily. n tablet 00 DULOXETINE Yes Take by Uni vers HCL 2-23 mouth. ity of (CYMBALTA 16:12: [place] ORAL) 36 Medical Branch DULOXETINE Yes Take by Uni vers HCL 2-23 mouth. ity of (CYMBALTA 16:12: [place] ORAL) 36 Medical Branch DULOXETINE Yes Take by Uni vers HCL 2-23 mouth. ity of (CYMBALTA 16:12: [place] ORAL) 36 Medical Branch DULOXETINE Yes Take by Uni vers HCL 2-23 mouth. ity of (CYMBALTA 16:12: [place] ORAL) 36 Medical Branch DULOXETINE Yes Take by Uni vers HCL 2-23 mouth. ity of (CYMBALTA 16:12: [place] ORAL) 36 Medical Branch OMEPRAZOLE Yes Take by Uni vers (PRILOSEC 2-23 mouth. ity of ORAL) 16:11: [place] Medical Branch AMLODIPINE Yes Take by Uni vers BESYLATE 2-23 mouth. ity of (AMLODIPINE 16:11: [place] ORAL) 51 Medical Branch metoprolol Yes 25mg Take 25 mg U nivers succinate 2-23 by mouth ity of XL (TOPROL 16:11: daily. [place] XL) 25 mg 51 Medical 24 hr Branch tablet atorvastati Yes 20mg Take 20 mg Univers n (LIPITOR) 2-23 by mouth ity of 20 mg 16:11: at [place] [address] bedtime. Medical Branch OMEGA-3 Yes Take by [facility] s FATTY 2-23 mouth. ity of ACIDS/FISH 16:11: [place] OIL (OMEGA 51 Medical 3 FISH OIL Branch ORAL) PSYLLIUM Yes Take by [facility] rs HUSK/ASPART 2-23 mouth. ity of MARGARITA 16:11: [place] (METAMUCIL 51 Medical MULTIHEALTH Branch FIBER ORAL) melatonin 3 Yes 3mg Take 3 mg U nivers mg tablet 2-23 by mouth ity of 16:11: at [place] [address] bedtime. Medical Branch GLUCOSAMINE Yes Take by Un santiago SULFATE 2-23 mouth. ity of (GLUCOSAMIN 16:11: [place] E ORAL) 51 Medical Branch OMEPRAZOLE 2017-0 Yes Take by Uni vers (PRILOSEC 2-23 mouth. ity of ORAL) 16:11: [place] [address] Medical Branch AMLODIPINE 2016-0 Yes Take by Uni vers BESYLATE 2-23 mouth. ity of (AMLODIPINE 16:11: [place] ORAL) 51 Medical Branch metoprolol 2016- Yes 25mg Take 25 mg U nivers succinate 2-23 by mouth ity of XL (TOPROL 16:11: daily. [place] XL) 25 mg 51 Medical 24 hr Branch tablet atorvastati 2017-0 Yes 20mg Take 20 mg Univers n (LIPITOR) 2-23 by mouth ity of 20 mg 16:11: at [place] tablet bedtime. Medical Branch OMEGA-3 2016- Yes Take by [facility] FATTY 2-23 mouth. ity of ACIDS/FISH 16:11: [place] OIL (OMEGA 51 Medical 3 FISH OIL Branch ORAL) PSYLLIUM 2016- Yes Take by [facility] rs HUSK/ASPART 2-23 mouth. ity of MARGARITA 16:11: [place] (METAMUCIL 51 Medical MULTIHEALTH Branch FIBER ORAL) melatonin 3 2016- Yes 3mg Take 3 mg U nivers mg tablet 2-23 by mouth ity of 16:11: at [place] [address] bedtime. Medical Branch GLUCOSAMINE 2016- Yes Take by Un santiago SULFATE 2-23 mouth. ity of (GLUCOSAMIN 16:11: [place] E ORAL) 51 Medical Branch OMEPRAZOLE 2016- Yes Take by Uni vers (PRILOSEC 2-23 mouth. ity of ORAL) 16:11: [place] [address] Medical Branch AMLODIPINE 2017-0 Yes Take by Uni vers BESYLATE 2-23 mouth. ity of (AMLODIPINE 16:11: [place] ORAL) 51 Medical Branch metoprolol 2017-0 Yes 25mg Take 25 mg U nivers succinate 2-23 by mouth ity of XL (TOPROL 16:11: daily. [place] XL) 25 mg 51 Medical 24 hr Branch tablet atorvastati 2017-0 Yes 20mg Take 20 mg Univers n (LIPITOR) 2-23 by mouth ity of 20 mg 16:11: at [place] tablet bedtime. Medical Branch OMEGA-3 2017- Yes Take by [facility] s FATTY 2-23 mouth. ity of ACIDS/FISH 16:11: [place] OIL (OMEGA 51 Medical 3 FISH OIL Branch ORAL) PSYLLIUM Yes Take by [facility] rs HUSK/ASPART 2-23 mouth. ity of MARGARITA 16:11: [place] (METAMUCIL 51 Medical MULTIHEALTH Branch FIBER ORAL) melatonin 3 2016- Yes 3mg Take 3 mg U nivers mg tablet 2-23 by mouth ity of 16:11: at [place] [address] bedtime. Medical Branch GLUCOSAMINE 2016- Yes Take by Un santiago SULFATE 2-23 mouth. ity of (GLUCOSAMIN 16:11: [place] E ORAL) 51 Medical Branch OMEPRAZOLE Yes Take by Uni vers (PRILOSEC 2-23 mouth. ity of ORAL) 16:11: [place] [address] Medical Branch AMLODIPINE Yes Take by Uni vers BESYLATE 2-23 mouth. ity of (AMLODIPINE 16:11: [place] ORAL) 51 Medical Branch metoprolol Yes 25mg Take 25 mg U nivers succinate 2-23 by mouth ity of XL (TOPROL 16:11: daily. [place] XL) 25 mg 51 Medical 24 hr Branch tablet atorvastati Yes 20mg Take 20 mg Univers n (LIPITOR) 2-23 by mouth ity of 20 mg 16:11: at [place] [address] bedtime. Medical Branch OMEGA-3 Yes Take by [facility] s FATTY 2-23 mouth. ity of ACIDS/FISH 16:11: [place] OIL (OMEGA 51 Medical 3 FISH OIL Branch ORAL) PSYLLIUM Yes Take by [facility] rs HUSK/ASPART 2-23 mouth. ity of MARGARITA 16:11: [place] (METAMUCIL 51 Medical MULTIHEALTH Branch FIBER ORAL) melatonin 3 Yes 3mg Take 3 mg U nivers mg tablet 2-23 by mouth ity of 16:11: at [place] [address] bedtime. Medical Branch GLUCOSAMINE 2017- Yes Take by Un santiago SULFATE 2-23 mouth. ity of (GLUCOSAMIN 16:11: [place] E ORAL) 51 Medical Branch OMEPRAZOLE 2016- Yes Take by Uni vers (PRILOSEC 2-23 mouth. ity of ORAL) 16:11: [place] [address] Medical Branch AMLODIPINE 2016- Yes Take by Uni vers BESYLATE 2-23 mouth. ity of (AMLODIPINE 16:11: [place] ORAL) 51 Medical Branch metoprolol Yes 25mg Take 25 mg U nivers succinate 2-23 by mouth ity of XL (TOPROL 16:11: daily. [place] XL) 25 mg 51 Medical 24 hr Branch tablet atorvastati Yes 20mg Take 20 mg Univers n (LIPITOR) 2-23 by mouth ity of 20 mg 16:11: at [place] tablet 51 bedtime. Medical Branch OMEGA-3 Yes Take by Univer s FATTY 2-23 mouth. ity of ACIDS/FISH 16:11: [place] OIL (OMEGA 51 Medical 3 FISH OIL Branch ORAL) PSYLLIUM Yes Take by Unive rs HUSK/ASPART 2-23 mouth. ity of MARGARITA 16:11: [place] (METAMUCIL 51 Medical MULTIHEALTH Branch FIBER ORAL) melatonin 3 Yes 3mg Take 3 mg U nivers mg tablet 2-23 by mouth ity of 16:11: at [place] [address] bedtime. Medical Branch GLUCOSAMINE Yes Take by Un santiago SULFATE 2-23 mouth. ity of (GLUCOSAMIN 16:11: [place] E ORAL) 51 Medical Branch metformin Yes TAKE 1 Univer s ER 8-07 TABLET BY ity of (GLUCOPHAGE 00:00: ORAL ROUTE [place] -XR) 500 mg 00 EVERY DAY Med ical 24 hr WITH THE Branch tablet EVENING MEAL metformin Yes TAKE 1 Univer s ER 8-07 TABLET BY ity of (GLUCOPHAGE 00:00: ORAL ROUTE [place] -XR) 500 mg 00 EVERY DAY Med ical 24 hr WITH THE Branch tablet EVENING MEAL metformin Yes TAKE 1 Univer s ER 8-07 TABLET BY ity of (GLUCOPHAGE 00:00: ORAL ROUTE [place] -XR) 500 mg 00 EVERY DAY Med ical 24 hr WITH THE Branch tablet EVENING MEAL metformin Yes TAKE 1 Univer s ER 8-07 TABLET BY ity of (GLUCOPHAGE 00:00: ORAL ROUTE [place] -XR) 500 mg 00 EVERY DAY Med ical 24 hr WITH THE Branch tablet EVENING MEAL metformin Yes TAKE 1 Univer s ER 8-07 TABLET BY ity of (GLUCOPHAGE 00:00: ORAL ROUTE [place] -XR) 500 mg 00 EVERY DAY Med ical 24 hr WITH THE Branch tablet EVENING MEAL metformin Yes TAKE 1 Univer s ER 8-07 TABLET BY ity of (GLUCOPHAGE 00:00: ORAL ROUTE [place] -XR) 500 mg 00 EVERY DAY Med ical 24 hr WITH THE Branch tablet EVENING MEAL metformin Yes TAKE 1 Univer s ER 8-07 TABLET BY ity of (GLUCOPHAGE 00:00: ORAL ROUTE [place] -XR) 500 mg 00 EVERY DAY Med ical 24 hr WITH THE Branch tablet EVENING MEAL metformin Yes TAKE 1 Univer s ER 8-07 TABLET BY ity of (GLUCOPHAGE 00:00: ORAL ROUTE [place] -XR) 500 mg 00 EVERY DAY Med ical 24 hr WITH THE Branch tablet EVENING MEAL metformin Yes TAKE 1 Univer s ER 8-07 TABLET BY ity of (GLUCOPHAGE 00:00: ORAL ROUTE [place] -XR) 500 mg 00 EVERY DAY Med ical 24 hr WITH THE Branch tablet EVENING MEAL buPROPion 0 Yes Univers (WELLBUTRIN 8-06 ity of ) 100 mg 00:00: [place] tablet 00 Medical Branch buPROPion 0 Yes Univers (WELLBUTRIN 8-06 ity of ) 100 mg 00:00: [place] tablet 00 Medical Branch buPROPion 0 Yes Univers (WELLBUTRIN 8-06 ity of ) 100 mg 00:00: [place] tablet 00 Medical Branch buPROPion 0 Yes Univers (WELLBUTRIN 8-06 ity of ) 100 mg 00:00: [place] tablet 00 Medical Branch buPROPion 2014-0 Yes Univers (WELLBUTRIN 8-06 ity of ) 100 mg 00:00: [place] tablet 00 Medical Branch buPROPion 2014-0 Yes Univers (WELLBUTRIN 8-06 ity of ) 100 mg 00:00: [place] tablet 00 Medical Branch buPROPion 2014-0 Yes Univers (WELLBUTRIN 8-06 ity of ) 100 mg 00:00: [place] tablet 00 Medical Branch buPROPion 0 Yes Univers (WELLBUTRIN 8-06 ity of ) 100 mg 00:00: [place] tablet 00 Medical Branch buPROPion 2014-0 Yes Univers (WELLBUTRIN 8-06 ity of ) 100 mg 00:00: [place] tablet 00 Medical Branch levothyroxi 0 Yes Univer s ne 6-11 ity of (SYNTHROID) 00:00: [place] 112 mcg 00 Medical tablet Branch levothyroxi 0 Yes Univer s ne 6-11 ity of (SYNTHROID) 00:00: [place] 112 mcg 00 Medical tablet Branch levothyroxi 2015-0 Yes Univer s ne 6-11 ity of (SYNTHROID) 00:00: [place] 112 mcg 00 Medical tablet Branch levothyroxi 2015-0 Yes Univer s ne 6-11 ity of (SYNTHROID) 00:00: [place] 112 mcg 00 Medical tablet Branch levothyroxi 2015-0 Yes Univer s ne 6-11 ity of (SYNTHROID) 00:00: [place] 112 mcg 00 Medical tablet Branch levothyroxi 2015-0 Yes Univer s ne 6-11 ity of (SYNTHROID) 00:00: [place] 112 mcg 00 Medical tablet Branch levothyroxi 2015-0 Yes Univer s ne 6-11 ity of (SYNTHROID) 00:00: [place] 112 mcg 00 Medical tablet Branch levothyroxi 2015-0 Yes [place] s ne 6-11 ity of (SYNTHROID) 00:00: [place] 112 mcg 00 Medical tablet Branch levothyroxi 2015-0 Yes [place]etta[place] s ne 6-11 ity of (SYNTHROID) 00:00: [place] 112 mcg 00 Medical tablet Branch fluocinonid 2013-0 Yes [id number] Apply to Univers e (LIDEX) 3-10 area(s) 2 ity o f 0.05 % 00:00: (two) [place] cream 00 times Medical daily. Branch fluocinonid 2013- Yes [id number] Apply to Univers e (LIDEX) 3-10 area(s) 2 ity o f 0.05 % 00:00: (two) [place] cream 00 times Medical daily. Branch fluocinonid 2013- Yes [id number] Apply to Univers e (LIDEX) 3-10 area(s) 2 ity o f 0.05 % 00:00: (two) [place] cream 00 times Medical daily. Branch fluocinonid 2013- Yes [id number] Apply to Univers e (LIDEX) 3-10 area(s) 2 ity o f 0.05 % 00:00: (two) [place] cream 00 times Medical daily. Branch fluocinonid 2013- Yes [id number] Apply to Univers e (LIDEX) 3-10 area(s) 2 ity o f 0.05 % 00:00: (two) [place] cream 00 times Medical daily. Branch fluocinonid 2013- Yes [id number] Apply to Univers e (LIDEX) 3-10 area(s) 2 ity o f 0.05 % 00:00: (two) [place] cream 00 times Medical daily. Branch fluocinonid Yes [id number] Apply to Univers e (LIDEX) 3-10 area(s) 2 ity o f 0.05 % 00:00: (two) [place] cream 00 times Medical daily. Branch fluocinonid Yes [id number] Apply to Univers e (LIDEX) 3-10 area(s) 2 ity o f 0.05 % 00:00: (two) [place] cream 00 times Medical daily. Branch fluocinonid Yes [id number] Apply to Univers e (LIDEX) 3-10 area(s) 2 ity o f 0.05 % 00:00: (two) [place] cream 00 times Medical [facility]. [facility]-21 ity of mcg/actuati 00:00: [place] [facility] ity of mcg/actuati 00:00: [place] [facility] Univers [facility] 0-21 ity of mcg/actuati 00:00: [place] [facility] Univers 90 0-21 ity of mcg/actuati 00:00: [place] [facility] Univers [facility]-21 ity of mcg/actuati 00:00: [place] [facility] Univers 90 0-21 ity of mcg/actuati 00:00: [place] [facility] Univers 90 0-21 ity of mcg/actuati 00:00: [place] on inhaler Medical [facility] HFA 2012-02 Yes Univers 90 0-21 ity of mcg/actuati 00:00: [place] on inhaler [facility] HFA 2012-02 Yes Univers 90 0-21 ity of mcg/actuati 00:00: [place] on inhaler Medical Branch Procedures Procedure Date / Time Performing Clinician Source Performed DERMATOPATHOLOGY TISSUE 2019-08-29 00:00:00 Tim Saba [facility] Branch Plan of Care Planned Activity Planned Date Details Comments Source Future Scheduled Test 1958 00:00:00 COVID-19 Vaccination MD Melendez (1) [code = COVID-19 Vaccination (1)] Encounters Start End Encounter Admission Attending Care Care Encounter Source Date/Time Date/Time Type Type Clinicians Facility Department ID 2020-06-09 Inpatient FRENCH Ferrell [facility] DAYS [id number] [facility] 12:20:00 Tuan [id number] 2021-08-23 2021-08-23 [facility] [id number] Univers 10:30:00 10:30:00 TIM [id number] [facility] 2020-08-31 2020-08-31 [facility] [id number] Univers 13:04:30 13:41:46 Visit Tim Interiano MULTISPEC [id number] ity of [place]AL[place] [id number] [facility] [phone] [address] [facility] 2020-08-31 2020-08-31 [facility] [id number] [id number] Univers 13:15:00 13:15:00 TIM [id number] [facility] 2020-08-31 2020-08-31 [facility] [id number] Univers 13:15:00 13:15:00 TIM [facility] 2020-08-27 2020-08-27 [place] [id number] Univers 11:00:00 11:00:00 TIM [id number] [facility] 2020-07-03 2020-07-03 [facility] [id number] Univers 00:00:00 00:00:00 Secure Msg Tim Interiano MULTISPEC [id number] ity of [place] [id number] [facility] [phone] [address] [facility] 2019-08-29 2019-09-11 [facility] [id number] 10:26:31 15:45:23 Visit Tim Interiano MULTISPEC [id number] [place]AL[place] [id number] [facility] [phone] [place] [id number] DIABETES [facility] 2019-08-29 2019-09-[address] [facility] [id number] [facility] 10:26:31 15:45:23 Visit Tim Interiano MULTISPEC [id number] ity of [place] [id number] [facility] [phone] [address] [facility] 2019-08-29 2019-08-29 Outpatient Mariann [facility] [id number] Univers 10:45:00 10:45:00 TIM [id number] carlos [facility] 2019-08-29 2019-08-29 [facility] [id number] Univers 10:45:00 10:45:00 TMI gonzalez [facility] 2019-06-06 2019-06-06 Outpatient Mariann SABA [facility] [id number] Univers 09:50:00 09:50:00 TIM gonzalez [facility] 2019-06-06 2019-06-06 Outpatient Mariann SABA [facility] [id number] Univers 09:50:00 09:50:00 TIM [id number] [facility] 2019-05-17 2019-05-[address] [facility] [id number] Univers 00:00:00 00:00:00 Secure Msg Unassigned, MULTISPEC [id number] ity of [place] IALTY [id number] [facility] [phone] [address] [facility] Results Test Description Test Time Test Comments Results Result Comments Source GLUBED 2020-06-09 07:11:00 Test Item Value Reference Range Interpretation Comme nts GLUBED (test code = GLUBED) 128 mg/dL 60-125 H
[2020-12-30] MEDS ORDERED: ONDANSETRON 4 MG/2 ML VIAL ONE (09:14)
[2020-12-30] MEDS ORDERED: NA CHLORIDE 0.9% 1,000 ML ONE (09:14)
[2020-12-30] MEDS ORDERED: ACETAMINOPHEN 325 MG TABLET ONE (09:40)
[2020-12-30 09:43] LABS: Absolute Lymphocytes (CBC) 0.3 K/uL (0.7-4.9); Basophils % 0.2 % (0-1.3); Hematocrit 40.9 % (36.0-45.0); Lymphocytes % 4.4 % (15.3-44.8); MPV 7.9 fL (7.6-11.3); RBC Red Blood Cell Count 4.57 M/uL (3.86-4.86)
[2020-12-30 09:59] LABS: Blood Morphology Comment NOT SEEN (NOT SEEN); Platelet Estimate ADEQ; Platelets, Giant FEW; White Blood Cell Scan OK (OK)
[2020-12-30 10:29] LABS: SARS-COV-2 RT PCR NEGATIVE (NEGATIVE)
[2020-12-30 10:49] LABS: Albumin 3.7 g/dL (3.4-5.0); Bilirubin Direct 0.4 mg/dL (0-0.2); Bilirubin Total 1.1 mg/dL (0.2-1.0); Potassium 4.2 mmol/L (3.5-5.1); Protein, Total 7.2 g/dL (6.4-8.2)
--- NOTE | 2020-12-30 11:54 | RAD REPORT ---
EXAM DESCRIPTION: CTAbdomen Pelvis W Contrast - 12/30/2020 11:29 am CLINICAL HISTORY: vomiting COMPARISON: Chest Abdomen Pelvis W Cont dated 09/28/2016 TECHNIQUE: CT of the abdomen and pelvis was performed. All CT scans are performed using dose optimization technique as appropriate and may include automated exposure control or mA/KV adjustment according to patient size. FINDINGS: Lower chest: No acute abnormality. Liver: Hepatic steatosis. Biliary: Cholecystectomy Stomach: No significant focal abnormality. Duodenum: No significant focal abnormality. Pancreas: No significant abnormality. Spleen: No significant abnormality. Adrenal: No suspicious lesions. Kidney/ureter: No hydronephrosis. No renal calculi. Too small to characterize and/or benign appearing renal lesions are noted. Retroperitoneum: No retroperitoneal adenopathy. Vascular: No aneurysm. Bowel: No significant focal abnormality. Diverticulosis. No evidence of acute diverticulitis. Peritoneum: Calcified nodules in the small bowel mesentery are similar to 09/28/2016. Bladder: Grossly unremarkable. Reproductive: No adnexal masses. Hysterectomy. Bones: No acute fracture. Other: n/a IMPRESSION: No acute intra-abdominal or pelvic finding. Incidental findings as noted above.
[2020-12-30] MEDS ORDERED: DIPHENOX/ATROP SULF 1 TAB PO ONE (11:57)
--- NOTE | 2020-12-30 11:57 | EDPHYS ---
Physician Documentation [facility] Name: Sultana Heck Age: 75 yrs Sex: Female : 1945 Arrival Date: 12/30/2020 Time: 09:00 Bed 7 Private MD: Nato Menard C ED Physician Jeffrey Eckert HPI: 12/30 09:19 This 75 yrs old Female presents to ER via Wheelchair with complaints of rn Vomiting/Diarrhea. 09:19 The patient presents to the emergency department with nausea, vomiting, diarrhea. rn Onset: The symptoms/episode began/occurred this morning. Possible causes: unknown. The symptoms are aggravated by nothing. The symptoms are alleviated by nothing. Associated signs and symptoms: Pertinent positives: diarrhea, nausea, vomiting, Pertinent negatives: fever, GI bleeding. Severity of symptoms: At their worst the symptoms were moderate in the emergency department the symptoms are unchanged. The patient has not experienced similar symptoms in the past. The patient has not recently seen a physician. Patient states vomiting and diarrhea that began this morning. started with similar symptoms last night. In contact with child that may have been sick as well or that parents had similar illness. No blood in emesis or diarrhea. Reports mild abdominal cramping but no focal pain.. Historical: - Allergies: 09:11 Morphine; iw 09:11 Reglan; iw - Home Meds: 09:11 Prilosec 40 mg Oral cpDR 1 cap 2 times per day [Active]; amlodipine 5 mg tab 1 tab once iw daily for Hypertension [Active]; levothyroxine 88 mcg tab 1 tab once daily for Hypothyroidism [Active]; metoprolol tartrate 25 mg Oral tab 1 tab 2 times per day [Active]; metformin 500 mg Oral Tb24 1 tab 2 times per day [Active]; aspirin 81 mg Oral chew 1 tab once daily [Active]; Cymbalta 30 mg Oral cpDR 1 cap once daily [Active]; Lipitor 40 mg Oral tab 1 tab once daily [Active]; donepezil 10 mg oral tab twice a day [Active]; - PMHx: 09:11 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 - Social history:: Smoking status: Patient denies any tobacco usage or history of. - Family history:: not pertinent. - Hospitalizations: : No recent hospitalization is reported. ROS: 09:19 Constitutional: Negative for fever, chills, and weight loss, Eyes: Negative for injury, rn pain, redness, and discharge, Neck: Negative for injury, pain, and swelling, Cardiovascular: Negative for chest pain, palpitations, and edema, Respiratory: Negative for shortness of breath, cough, wheezing, and pleuritic chest pain, Abdomen/GI: Abdominal cramping/nausea/vomiting/diarrhea Back: Negative for injury and pain, : Negative for injury, bleeding, discharge, and swelling, MS/Extremity: Negative for injury and deformity, Skin: Negative for injury, rash, and discoloration, Neuro: Negative for headache, weakness, numbness, tingling, and seizure. Exam: 09:19 Constitutional: This is a well developed, well nourished patient who is awake, alert, rn and in no acute distress. Head/Face: Normocephalic, atraumatic. Eyes: Periorbital areas with no swelling, redness, or edema. ENT: Dry mucous membranes. Cardiovascular: Tachycardic, regular. No pulse deficits. Respiratory: No increased work of breathing, no retractions or nasal flaring. Abdomen/GI: Soft, non-tender Skin: Warm, dry MS/ Extremity: Pulses equal, no cyanosis Neuro: Awake and alert, GCS 15 Vital Signs: 09:09 BP 144 / 56; Pulse 105; Resp 18 S; Temp 100.2(O); Pulse Ox 97% on R/A; Height 5 ft. 4 iw in. (162.56 cm); 09:33 BP 135 / 58; Pulse 85; Resp 19; Pulse Ox 96% on R/A; Weight 81.65 kg; Height 5 ft. 4 jl7 in. (162.56 cm); Pain 0/10; 10:47 BP 152 / 60; Pulse 92; Resp 15; Temp 99.8; Pulse Ox 92% on R/A; jl7 09:33 Body Mass Index 30.90 (81.65 kg, 162.56 cm) jl7 MDM: 09:02 Patient medically screened. rn 11:56 Differential diagnosis: pancreatitis, appendicitis, diverticulitis, viral rn gastroenteritis, gastroenteritis. Data reviewed: vital signs, nurses notes, lab test result(s), radiologic studies, CT scan, and as a result, I will discharge patient. Counseling: I had a detailed discussion with the patient and/or guardian regarding: the historical points, exam findings, and any diagnostic results supporting the discharge/admit diagnosis, lab results, radiology results, the need for outpatient follow up, to return to the emergency department if symptoms worsen or persist or if there are any questions or concerns that arise at home. Response to treatment: the patient's symptoms have markedly improved after treatment, and as a result, I will discharge patient. Special discussion: I discussed with the patient/guardian in detail that at this point there is no indication for admission to the hospital. It is understood, however, that if the symptoms persist or worsen the patient needs to return immediately for re-evaluation. 12/30 09:11 Order name: Basic Metabolic Panel; Complete Time: 10:51 12/30 09:11 Order name: CBC with Diff; Complete Time: 10:51 12/30 09:11 Order name: Hepatic Function; Complete Time: 10:51 12/30 09:11 Order name: Lipase; Complete Time: 10:51 12/30 09:11 Order name: IV Saline Lock; Complete Time: 09:32 rn 12/30 09:11 Order name: CT Abd/Pelvis - IV Contrast Only; Complete Time: 11:55 12/30 09:39 Order name: COVID-19/FLU A+B; Complete Time: 10:51 EDNY 12/30 09:59 Order name: CBC Smear Scan; Complete Time: 10:51 EDNY 12/30 09:11 Order name: Labs collected and sent; Complete Time: 09:32 rn Administered Medications: 09:20 Drug: NS 0.9% 1000 ml Route: IV; Rate: 1000 ml; Site: right forearm; jl7 10:30 Follow up: Response: No adverse reaction; IV Status: Completed infusion; IV Intake: jl7 1000ml 09:20 Drug: Zofran (Ondansetron) 4 mg Route: IVP; Site: right forearm; jl7 09:45 Follow up: Response: No adverse reaction; Nausea is decreased jl7 09:45 Drug: Tylenol 650 mg Route: PO; jl7 10:46 Follow up: Response: No adverse reaction; Temperature is decreased jl7 12:14 Drug: LoMOTIL (diphenoxylate-atropine) 2 tabs Route: PO; ap3 12:22 Follow up: Response: Medication administered at discharge. jl7 Disposition Summary: 12/30/20 11:56 Discharge Ordered Location: Home rn Problem: new rn Symptoms: have improved rn Condition: Stable rn Diagnosis - Nausea with vomiting, unspecified rn - Diarrhea, unspecified rn - Dehydration rn Followup: rn - With: Private Physician - When: As needed - Reason: Recheck today's complaints, Re-evaluation by your physician Discharge Instructions: - Discharge Summary Sheet rn - Dehydration, Adult rn - Diarrhea, Adult rn - Nausea and Vomiting, Adult rn Forms: - Medication Reconciliation Form rn - Thank You Letter rn - Antibiotic technical support intern - Prescription Opioid Use rn Prescriptions: - ondansetron 4 mg Oral tablet,disintegrating - take 1 tablet by ORAL route every 8-10 hours As needed; 15 tablet; Refills: 0, rn Product Selection Permitted Signatures: Dispatcher [employer] EDMS Corazon Bills RN RN iw Jeffrey Eckert MD MD rn Leal, Jahala, RN RN jl7 Nikki Diana RN RN ap3 Corrections: (The following items were deleted from the chart) 09:40 09:12 SARS-COV-2 RT PCR+MOL.LAB.BRZ ordered. EDMS EDMS 09:41 09:12 Influenza Screen (A \T\ B)+BA.LAB.BRZ ordered. EDMS EDMS
--- NOTE | 2020-12-30 11:57 | ER ---
Nurse's Notes [facility] Name: Sultana Heck Age: 75 yrs Sex: Female : 1945 Arrival Date: 12/30/2020 Time: 09:00 Bed 7 Private MD: Nato Menard C Diagnosis: Nausea with vomiting, unspecified;Diarrhea, unspecified;Dehydration Presentation: 12/30 09:09 Chief complaint: Patient states: n/v/d X 2 days, feels bloated , not tolerating fluids. iw Coronavirus screen: diarrhea, nausea, vomiting. Client presents with at least one sign or symptom that may indicate coronavirus-19. Ebola Screen: Patient negative for fever greater than or equal to 101.5 degrees Fahrenheit, and additional compatible Ebola Virus Disease symptoms Patient denies exposure to infectious person. Patient denies travel to an Ebola-affected area in the 21 days before illness onset. No symptoms or risks identified at this time. Initial Sepsis Screen: Does the patient meet any 2 criteria? No. Patient's initial sepsis screen is negative. Does the patient have a suspected source of infection?. Risk Assessment: Do you want to hurt yourself or someone else? Patient reports no desire to harm self or others. Onset of symptoms was December 28, 2020. 09:09 Method Of Arrival: Wheelchair iw 09:09 Acuity: DONTE 3 iw Historical: - Allergies: 09:11 Morphine; iw 09:11 Reglan; iw - Home Meds: 09:11 Prilosec 40 mg Oral cpDR 1 cap 2 times per day [Active]; amlodipine 5 mg tab 1 tab once iw daily for Hypertension [Active]; levothyroxine 88 mcg tab 1 tab once daily for Hypothyroidism [Active]; metoprolol tartrate 25 mg Oral tab 1 tab 2 times per day [Active]; metformin 500 mg Oral Tb24 1 tab 2 times per day [Active]; aspirin 81 mg Oral chew 1 tab once daily [Active]; Cymbalta 30 mg Oral cpDR 1 cap once daily [Active]; Lipitor 40 mg Oral tab 1 tab once daily [Active]; donepezil 10 mg oral tab twice a day [Active]; - PMHx: 09:11 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 - Social history:: Smoking status: Patient denies any tobacco usage or history of. - Family history:: not pertinent. - Hospitalizations: : No recent hospitalization is reported. Screenin:33 Abuse screen: Denies threats or abuse. Denies injuries from another. Nutritional jl7 screening: No deficits noted. Tuberculosis screening: No symptoms or risk factors identified. Fall Risk Secondary diagnosis (15 points) dementia, IV access (20 points). Total Gibbons Fall Scale indicates Low Risk Score (25-44 pts). Fall prevention measures have been instituted. Side Rails Up X 2 Placed close to Nursing Station Frequent Obs/Assesments occuring As available Patient and Family Educated on Fall Prevention Program and strategies. Assessment: 09:33 General: Appears in no apparent distress. uncomfortable, ill, Behavior is calm, jl7 cooperative, appropriate for age. Pain: Denies pain. Neuro: Level of Consciousness is awake, alert, obeys commands, Oriented to person, place, time, situation. Cardiovascular: Denies chest pain, Patient's skin is warm and dry. Respiratory: Airway is patent Respiratory effort is even, unlabored, Respiratory pattern is regular, symmetrical. GI: Abdomen is non-distended, Abd is soft and non tender X 4 quads. Reports diarrhea, nausea, vomiting. Derm: Skin is pink, warm \T\ dry. 10:47 Reassessment: Patient appears in no apparent distress at this time. Patient and/or jl7 family updated on plan of care and expected duration. Pain level reassessed. Patient is alert, oriented x 3, equal unlabored respirations, skin warm/dry/pink. Patient states symptoms have improved. Vital Signs: 09:09 BP 144 / 56; Pulse 105; Resp 18 S; Temp 100.2(O); Pulse Ox 97% on R/A; Height 5 ft. 4 iw in. (162.56 cm); 09:33 BP 135 / 58; Pulse 85; Resp 19; Pulse Ox 96% on R/A; Weight 81.65 kg; Height 5 ft. 4 jl7 in. (162.56 cm); Pain 0/10; 10:47 BP 152 / 60; Pulse 92; Resp 15; Temp 99.8; Pulse Ox 92% on R/A; jl7 09:33 Body Mass Index 30.90 (81.65 kg, 162.56 cm) jl7 ED Course: 09:00 Patient arrived in ED. as 09:00 Nato Menard MD is Private Physician. as 09:02 Jeffrey Eckert MD is Attending Physician. rn 09:11 Triage completed. iw 09:13 Tonie Oden RN is Primary Nurse. jl7 09:14 Arm band placed on. iw 09:33 Patient has correct armband on for positive identification. Placed in gown. Bed in low jl7 position. Call light in reach. Side rails up X2. pvc monitor on. Pulse ox on. NIBP on. 09:33 Initial lab(s) drawn, by me, sent to lab. COVID swab sent to lab. Flu and/or RSV swab jl7 sent to lab. Inserted saline lock: 20 gauge in right forearm, using aseptic technique. Blood collected. 11:29 CT Abd/Pelvis - IV Contrast Only In Process Unspecified. EDMS 12:20 No provider procedures requiring assistance completed. IV discontinued, intact, jl7 bleeding controlled, No redness/swelling at site. Pressure dressing applied. Administered Medications: 09:20 Drug: NS 0.9% 1000 ml Route: IV; Rate: 1000 ml; Site: right forearm; jl7 10:30 Follow up: Response: No adverse reaction; IV Status: Completed infusion; IV Intake: jl7 1000ml 09:20 Drug: Zofran (Ondansetron) 4 mg Route: IVP; Site: right forearm; jl7 09:45 Follow up: Response: No adverse reaction; Nausea is decreased jl7 09:45 Drug: Tylenol 650 mg Route: PO; jl7 10:46 Follow up: Response: No adverse reaction; Temperature is decreased jl7 12:14 Drug: LoMOTIL (diphenoxylate-atropine) 2 tabs Route: PO; ap3 12:22 Follow up: Response: Medication administered at discharge. jl7 Intake: 10:30 IV: 1000ml; Total: 1000ml. jl7 Outcome: 11:56 Discharge ordered by . rn 12:20 Discharged to home via wheelchair. jl7 12:20 Condition: stable 12:20 Discharge instructions given to patient, family, Instructed on discharge instructions, follow up and referral plans. medication usage, Demonstrated understanding of instructions, follow-up care, medications, Prescriptions given X 1. 12:21 Patient left the ED. jl7 Signatures: Dispatcher [employer] Marilu Licona Irene, RN RN iw Nieto, Roman, MD MD rn Leal, Jahala, RN RN jl7 Nikki Diana RN RN ap3
[2020-12-30 12:30] VITALS: BP 152/60; TEMP 99.8; O2SAT 92
== END 2020-12-30 12:21 | disposition home or self-care (01) ==
LOC: ER 08:55
DX: E86.0 Dehydration (principal); R19.7 Diarrhea, unspecified; I10 Essential (primary) hypertension; E11.9 Type 2 diabetes mellitus without complications; F03.90 Unspecified dementia, unspecified severity, without behavioral disturbance, psychotic disturbance, mood disturbance, and anxiety; Z79.82 Long term (current) use of aspirin; Z88.5 Allergy status to narcotic agent; Z88.8 Allergy status to other drugs, medicaments and biological substances; Z20.822 Contact with and (suspected) exposure to COVID-19
CPT/HCPCS: 85025; 80048; 36415; 80076; 83690; 0240U; 74177; Q9967; J7030; J2405

== ENCOUNTER 2023-09-24 10:31 | Observation (INO) | payer OTHER ==
--- OUTSIDE RECORDS SUMMARY | 2023-09-24 10:33 | XMS REPORT | Clinical Summary ---
Author Name Unknown Organization [facility] [place] [facility] Address [address] [place] [address] Care Team Providers Care Administrative Support Clerk Name Role Phone Kristina Lua MD Primary Care Provider [phone] Darrel Menard MD Unavailable [phone] Sylvia Read MD Unavailable + José Antonio Topete MD Unavailable Allergies Active Allergy Reactions Criticality Noted Date Comments Morphine Sulfate Other (See Comments) 7 Sever vomiting Metoclopramide Hcl Other (See Comments) 017 Nausea, drowsy, stomach cramps Medications Medication Sig Dispensed Refills Start Date End Date Status atorvastatin (LIPITOR) 20 mg tablet Take 40 mg by mouth daily. 08/06/2016 Active amLODIPine (NORVASC) 5 mg tablet Take 1 tablet by mouth daily. 09/21/2016 Active omeprazole (PriLOSEC) 40 MG capsule Take 40 mg by mouth 2 (two) times a day before meals. Active levothyroxine (SYNTHROID, LEVOTHROID) 125 mcg tablet Take 112 mcg by mouth daily. Active metoprolol tartrate (LOPRESSOR) 25 mg tablet Take 12.5 mg by mouth twice daily. Active b complex vitamins tablet Take 1 tablet by mouth daily. Active biotin 5,000 mcg TbDL Dissolve 1 tablet on the tongue daily. Active fish oil-omega-3 fatty acids 300-1,000 mg capsule Take 1 g by mouth twice daily. Active ergocalciferol (VITAMIN D2) 50,000 units capsule Take 50,000 Units by mouth. Active cholecalciferol, vitamin D3, 1,000 units tablet Take 1,000 Units by mouth daily. Active vitamin E 1,000 units capsule Take 1,000 Units by mouth daily. Active metFORMIN (GLUCOPHAGE-XR) 500 mg 24 hr tablet Take 1 tablet by mouth 2 (two) times a day with meals. 6 10/26/2016 Active ibuprofen (ADVIL,MOTRIN) 200 mg tablet Take 200 mg by mouth as needed. Active DULoxetine (CYMBALTA) 30 mg capsule Take 30 mg by mouth daily. 09/22/2017 Active melatonin 3 mg tablet 3 mg nightly as needed. Active psyllium, aspartame, (METAMUCIL) powd powder Take by mouth. Active aspirin 81 mg EC tablet Take 81 mg by mouth daily. Active multivitamin (THERAGRAN) tablet Take 1 tablet by mouth daily. 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 HYSTERECTOMY 02/13/1981 - 02/12/1982 for bleeding, ovaries intact BUNIONECTOMY 02/13/1989 - 02/12/1990 Bilateral HEEL SPUR SURGERY Bilateral multiple REDUCTION MAMMAPLASTY 02/13/2007 - 02/13/2008 Bilateral CARDIAC CATHETERIZATION 04/25/2017 OSI [facility] HAND SURGERY Right 5 Broken fingers/knuckles after injury ABDOMINOPLASTY 02/13/2007 - 02/13/2008 Midline SKIN CANCER EXCISION 02/13/2010 - 02/12/2011 BCC FOOT NEUROMA SURGERY 02/13/2010 - 02/12/2011 Left CATARACT EXTRACTION, BILATERAL 02/14/2016 - 02/12/2017 Left 08/23/16, Right 09/06/16 CARDIAC CATHETERIZATION 04/25/2017 no stents BREAST BIOPSY 02/13/2014 - 02/12/2015 Right benign Medical History Medical History Date Comments Hypertension Hyperlipidemia Hearing loss Fatty liver NOW Gastric reflux 1996 Gallstone 2000 HAD HEMORRHAGIC PANCREATITIS Pancreatitis 2000 HEMORRHAGIC PANC RETITIS Kidney failure 2000 WITH HEMORRHAGIC PANCREATITIS Menopause Blood transfusion, without r eported diagnosis Fracture 1988 FELL AND BROKE/F RACTURED 4 KNUCKLES OF RIGHT HAND Presence of other specified device 2010 PLATE AND PIN IN LARGE TOE ON LEFT FOOT AND PIN IN NEXT TOE Disorder of thyroid gland 1994 Diabetes mellitus 2015 Depressive disorder 2000 BEING TREATE D Basal cell carcinoma of skin of nose 2010 Family History Medical History Relation Name Comments Coronary heart disease (CHD) Father ACE SANDOVAL Diabetes Father ACE SANDOVAL Hypertension Father ACE SANDOVAL -Breast cancer Maternal Aunt Other Maternal Grandfather breast mass s/p mastectomy, ? cancer Ovarian cancer Neg Hx Pancreatic cancer Neg Hx Relation Name Status Comments Father ACE SANDOVAL Maternal Aunt Maternal Grandfather Social History Tobacco Use Types Packs/Day Years Used Date Smoking Tobacco: Former Cigarettes 3 61 S tarted: 09/13/1962 Smokeless Tobacco: Never Alcohol Use Standard Drinks/Week Comments Yes 0 (1 standard drink = 0.6 oz pur e alcohol) Sex and Gender Information Value Date Recorded Sex Assigned at Not on file Gender Identity Not on file Sexual Orientation Not on file Obstetrics History Para Term AB IAB SAB Ectopic Multiple Livin g Live Births 2 2 Date Outcome GA Total Labor Labor/2nd/3rd Weight Sex Type Anes PTL June A1 A5 Name Clin Para Para Comments Menarche - age 13 Menopause - surgical (hysterectomy) 1982 Parity - age 23, Hormones - estrogen replacement, 1982 until 2012 OCPs - 20 years - none Plan of Treatment Health Maintenance Due Date Last Done Comments Pneumococcal Vaccine: 65+ Years (1 of 1 - PCV) 012 COVID-19 Vaccine (2022-24 season) 2022 Influenza Vaccine 10/15/2023 Care Teams Administrative Support Clerk Relationship Specialty Start Date End Date Kristina Lua MD [address] [place] [phone] [email or web address] PCP - General Breast Medical Oncology 10/06/16 Darrel Menard MD [address] [place] [phone] [email or web address] PCP - External Follow Up A Internal Medicine 10/18/16 Sylvia Read MD [address] [place] [phone] [email or web address] Consulting Physician Breast Surgery 11/03/17 José Antonio Topete MD [address] [place] [phone] [email or web address] Consulting Physician Rheumatology 05/09/17
[2023-09-24 11:23] LABS: Absolute Eosinophils 0.1 K/uL (0-0.5); Absolute Lymphocytes (CBC) 0.5 K/uL (0.7-4.9); Absolute Monocytes 0.1 K/uL (0.1-1.3); Absolute Neutrophil 3.7 K/uL (1.8-8.0); Basophils % 0.6 % (0-1.3); Eosinophils % 2.7 % (0-4.4); Hematocrit 39.8 % (36.0-45.0); Hemoglobin 13.1 g/dL (12.0-15.0); Lymphocytes % 11.9 % (15.3-44.8); MCH 29.3 pg (27.0-35.0); MCHC 32.8 g/dL (32.0-36.0); MCV 89.4 fL (80-100); MPV 7.6 fL (7.6-11.3); Monocytes % 2.6 % (3.3-12.3); Neutrophils % 82.2 % (41.7-73.7); Platelets 130 thou/uL (152-406); RBC Red Blood Cell Count 4.45 M/uL (3.86-4.86); Red Cell Distribution Width 16.9 % (12.1-15.2)
[2023-09-24 11:36] LABS: Anion Gap 8.4 mEq/L (5.0-15.0); Magnesium 1.6 mg/dL (1.6-2.4); Potassium 3.4 mEq/L (3.5-5.1)
--- NOTE | 2023-09-24 11:56 | RAD REPORT ---
EXAM DESCRIPTION: CT - Head Brain Wo Cont - 09/24/2023 11:36 am CLINICAL HISTORY: CONFUSED COMPARISON: Facial Bones W/ Mpr dated 04/17/2019; Head Brain Wo Cont dated 04/24/2017 TECHNIQUE: All CT scans are performed using dose optimization technique as appropriate and may inclu de automated exposure control or mA/KV adjustment according to patient size. FINDINGS: No intracranial hemorrhage, hydrocephalus or extra-axial fluid collection.No areas of brai n edema or evidence of midline shift. Moderate chronic small vessel ischemic changes. Age advanced ce rebral atrophy. The paranasal sinuses and mastoids are clear. The calvarium is intact. IMPRESSION: No acute intracranial abnormality.
[2023-09-24 13:37] LABS: Sqamous Epithelial <5 /HPF (None Seen); Transitional Epithelial <5 /HPF (None Seen); Urine Bacteria >50 /HPF (<20); Urine Bilirubin NEGATIVE (Negative); Urine Blood 3+ (Negative); Urine Clarity Extremely Turbid (Clear); Urine Color Yellow (Yellow); Urine Culture Reflex Order REFLEXED; Urine Glucose 3+ (Negative); Urine Ketones NEGATIVE (Negative); Urine Microscopic Reflex YN ORDER UMIC; Urine Mucus Slight /HPF (None Seen); Urine Nitrite 2+ (Negative); Urine Protein 1+ (Negative); Urine RBC >50 /HPF (None Seen); Urine Urobilinogen 2+ (Normal); Urine WBC >50 /HPF (<5); Urine WBC Clump Many /HPF (None Seen)
[2023-09-24] MEDS ORDERED: CEFTRIAXONE 1000 MG/VIAL ONE (14:15)
--- NOTE | 2023-09-24 14:16 | ER ---
Nurse's Notes [facility] Name: Sultana Heck Age: 78 yrs Sex: Female : 1945 Arrival Date: 09/24/2023 Time: 10:31 Bed 4 Private MD: Darrel Menard Diagnosis: Altered mental status, unspecified;UTI/ Urinary tract infection, site not specified Presentation: 09/23 10:41 Chief complaint: Spouse and/or significant other states: Had new medicine infusion nj1 Monday for her Dementia, did well but then started having side effects, PCP concerned and sent over [facility] ED for further workup and evaluation, cleared, sent home. Seemed to do better yesterday morning but then was not really walking in the evening, neither today. Walks with assist, uses walker, at baseline. 10:41 Coronavirus screen: Vaccine status: Patient reports receiving the 2nd dose of the covid nj1 vaccine. Ebola Screen: Patient denies travel to an Ebola-affected area in the 21 days before illness onset. Initial Sepsis Screen: Does the patient meet any 2 criteria? No. Patient's initial sepsis screen is negative. Does the patient have a suspected source of infection? No. Patient's initial sepsis screen is negative. Risk Assessment: Do you want to hurt yourself or someone else? Patient reports no desire to harm self or others. Onset of symptoms was September 22, 2023. 10:41 Method Of Arrival: Wheelchair nj 10:41 Acuity: DONTE 3 nj1 Historical: - Allergies: 10:56 Morphine; nj1 10:56 Reglan; nj1 10:56 Jardiance; nj1 10:53 Morphine (Upset stomach); ko1 10:53 Reglan (Upset stomach); ko1 10:53 Jardiance (Rash); ko1 - Home Meds: 10:53 Prilosec 40 mg Oral cpDR 1 cap 2 times per day [Active]; levothyroxine 88 mcg tab 1 tab ko1 once daily for Hypothyroidism [Active]; metoprolol tartrate 25 mg Oral tab 1 tab 2 times per day [Active]; amlodipine 5 mg tab 1 tab once daily for Hypertension [Active]; metformin 500 mg Oral Tb24 1 tab 2 times per day [Active]; aspirin 81 mg Oral chew 1 tab once daily [Active]; Cymbalta 30 mg Oral cpDR 1 cap once daily [Active]; Lipitor 40 mg Oral tab 1 tab once daily [Active]; donepezil 23 mg oral tablet 1 tab daily [Active]; memantine 10 mg Oral tablet 2 times per day [Active]; - PMHx: 10:56 Diabetes - NIDDM; Hypertension; Dementia; TIA; Hypothyroidism; Depression; Arthritis; nj1 left trigeminal neuralgia; hemmoragic pancreatitis; 10:56 arthritis in [place] feet; Dementia; Depression; Diabetes - NIDDM; GERD; hemmoragic ko1 pancreatitis; Hyperlipidemia; Hypertension; Hypothyroidism; left trigeminal neuralgia; TIA; - PSHx: 10:56 Appendectomy; Tonsillectomy; hysterectomy; Bunionectomy (Unknown); Cholecystectomy; nj1 Bone spur removal; Tummy tuck; Breast reduction; Cataract; 10:56 Appendectomy; back; cataracts; hysterectomy; Tonsillectomy; ko1 - Immunization history:: Client reports receiving the 2nd dose of the Covid vaccine, Adult Immunizations up to date, Client reports receiving the 2nd dose of the Covid vaccine, Date received: April 25, 2020 Client reports receiving the 1st dose of the Covid vaccine, March 20, 2020 Last tetanus immunization: November 05, 2012 Pneumococcal vaccine is up to date, Flu vaccine is up to date. - Infectious Disease History:: Denies. Denies. - Social history:: Smoking status: Patient denies any tobacco usage or history of. Smoking status: Patient denies any tobacco usage or history of. - Family history:: not pertinent. - Hospitalizations: : No recent hospitalization is reported. Screenin:25 [facility] ED Fall Risk Assessment (Adult) History of falling in the last 3 months, dd2 including since admission No falls in past 3 months (0 pts) Confusion or Disorientation Yes (5 pts) Intoxicated or Sedated No (0 pts) Impaired Gait No (0 pts) Mobility Assist Device Used Yes (1 pt) Altered Elimination No (0 pt) Score/Fall Risk Level 3 or more points = High Risk Oriented to surroundings, Maintained a safe environment, Educated pt \T\ family on fall prevention, incl call for assistance when getting out of bed, Assessed \T\ reinforced patient's understanding of fall precautions, Provided non-skid footwear, Hourly rounding (assess needs \T\ fall precautionary measures) done. Abuse screen: Denies threats or abuse. Nutritional screening: No deficits noted. Tuberculosis screening: No symptoms or risk factors identified. Assessment: 11:25 General: Appears in no apparent distress. Behavior is calm, cooperative. Pain: Denies dd2 pain. Neuro: No deficits noted. Cardiovascular: No deficits noted. Respiratory: No deficits noted. Breath sounds are clear bilaterally. GI: No deficits noted. Abdomen is non-distended. : No deficits noted. EENT: No deficits noted. Derm: No deficits noted. Musculoskeletal: Parent/caregiver report the patient having weakness in GENERALIZED WEAKNESS. Vital Signs: 10:41 BP 131 / 68; Pulse 73; Resp 17; Temp 97.2(O); Pulse Ox 94% on R/A; Weight 80.29 kg; nj1 Height 5 ft. 4 in. ; 10:41 BP 131 / 68; Pulse 71; Resp 17; Pulse Ox 97% ; dd2 11:30 BP 145 / 58; Pulse 72; Resp 17; Pulse Ox 97% ; dd2 12:22 BP 149 / 64; Pulse 74; Resp 16; Pulse Ox 96% ; dd2 13:41 BP 144 / 57; Pulse 71; Resp 16; Pulse Ox 97% ; dd2 15:10 BP 143 / 56; Pulse 75; Resp 15; Pulse Ox 96% ; dd2 10:41 Body Mass Index 30.38 (80.29 kg, 162.56 cm) [facility] ED Course: 10:32 Patient arrived in ED. mr 10:32 Darrel Menard MD is Private Physician. mr 10:39 Jeffrey Eckert MD is Attending Physician. rn 10:56 Triage completed. nj1 10:59 Arm band placed on. nj1 11:25 Patient has correct armband on for positive identification. Bed in low position. Call dd2 light in reach. Side rails up X2. Door closed. Warm blanket given. 11:25 Provided Education on: CALL LIGHT, PROCEDURES. dd2 11:25 No provider procedures requiring assistance completed. dd2 11:35 Inserted saline lock: 20 gauge in right antecubital area, using aseptic technique. dd2 Blood collected. Flushed with 10 mL NS. 11:37 CT Head Brain wo Cont In Process Unspecified. EDMS 12:00 JILLIAN RIOS, RN is Primary Nurse. dd2 12:02 Client placed on continuous cardiac and pulse oximetry monitoring. NIBP monitoring dd2 applied. ekg monitor tech on. 12:02 EKG done, by ED staff, reviewed by Jeffrey Eckert MD. dd2 13:24 Urinalysis w/ reflexes Sent. dd2 14:11 Nato Menard MD is Hospitalizing Provider. rn 16:42 Patient admitted, IV remains in place. dd2 Administered Medications: 14:25 Drug: Rocephin IV 1 grams IV at calculated rate once; Given slow IV push per pharmacy dd2 instructions Route: IV; Rate: calculated rate; Site: right antecubital; 14:40 Follow up: Response: No adverse reaction; IV Status: Completed infusion; IV Intake: [id number] Medication: 11:25 VIS not applicable for this client. dd2 Intake: 14:40 IV: 10ml; Total: 10ml. dd2 Outcome: 14:15 Decision to Hospitalize by Provider. rn 16:42 Admitted to Med/surg accompanied by nurse, via stretcher, room 202, with chart, dd2 16:42 Condition: stable 16:42 Discharge instructions given to patient, family, Instructed on the need for admit, Demonstrated understanding of instructions, 16:45 Patient left the ED. dd2 Signatures: Dispatcher [employer] EDMS Theresa Lam, Reg Reg mr Jeffrey Eckert MD MD rn Oliver, Kathy, RN RN tosha1 Tara Fenton RN RN cesar1 JILLIAN RIOS RN RN dd2
--- NOTE | 2023-09-24 14:16 | EDPHYS ---
Physician Documentation [facility] Name: Sultana Heck Age: 78 yrs Sex: Female : 1945 Arrival Date: 09/24/2023 Time: 10:31 Bed 4 Private MD: Darrel Menard ED Physician Jeffrey Eckert HPI: 09/23 13:32 This 78 yrs old Female presents to ER via Wheelchair with complaints of Weakness, rn Dehydrated. 13:32 The patient presents to the emergency department with weakness of the entire body, rn generalized weakness. 13:33 Onset: The symptoms/episode began/occurred 2 day(s) ago. Associated signs and symptoms: rn Pertinent positives: weakness, Pertinent negatives: fever, neck stiffness, seizure, syncope. Severity of symptoms: At their worst the symptoms were moderate in the emergency department the symptoms are unchanged. Current symptoms: Currently, the patient is not experiencing any symptoms. The patient has experienced similar episodes in the past. The patient has been recently seen by a physician:. Family brings patient in for generalized weakness, malaise, concerns of dehydration. Patient just started a new infusion on Monday for dementia, prescribed by Dr. Merlos, after receiving medication patient is exhibiting generalized weakness and trouble walking. Patient has advanced dementia. Family denies fever/vomiting/diarrhea/cough/shortness of breath. Does not seem ill per family. Seen in [place] emergency room yesterday and had negative CT head and urine. Has not improved today so came in for evaluation.. Historical: - Allergies: 10:56 Morphine; nj1 10:56 Reglan; nj1 10:56 Jardiance; nj1 10:53 Morphine (Upset stomach); ko1 10:53 Reglan (Upset stomach); ko1 10:53 Jardiance (Rash); ko1 - Home Meds: 10:53 Prilosec 40 mg Oral cpDR 1 cap 2 times per day [Active]; levothyroxine 88 mcg tab 1 tab ko1 once daily for Hypothyroidism [Active]; metoprolol tartrate 25 mg Oral tab 1 tab 2 times per day [Active]; amlodipine 5 mg tab 1 tab once daily for Hypertension [Active]; metformin 500 mg Oral Tb24 1 tab 2 times per day [Active]; aspirin 81 mg Oral chew 1 tab once daily [Active]; Cymbalta 30 mg Oral cpDR 1 cap once daily [Active]; Lipitor 40 mg Oral tab 1 tab once daily [Active]; donepezil 23 mg oral tablet 1 tab daily [Active]; memantine 10 mg Oral tablet 2 times per day [Active]; - PMHx: 10:56 Diabetes - NIDDM; Hypertension; Dementia; TIA; Hypothyroidism; Depression; Arthritis; nj1 left trigeminal neuralgia; hemmoragic pancreatitis; 10:56 arthritis in [place] feet; Dementia; Depression; Diabetes - NIDDM; GERD; hemmoragic ko1 pancreatitis; Hyperlipidemia; Hypertension; Hypothyroidism; left trigeminal neuralgia; TIA; - PSHx: 10:56 Appendectomy; Tonsillectomy; hysterectomy; Bunionectomy (Unknown); Cholecystectomy; nj1 Bone spur removal; Tummy tuck; Breast reduction; Cataract; 10:56 Appendectomy; back; cataracts; hysterectomy; Tonsillectomy; ko1 - Immunization history:: Client reports receiving the 2nd dose of the Covid vaccine, Adult Immunizations up to date, Client reports receiving the 2nd dose of the Covid vaccine, Date received: April 25, 2020 Client reports receiving the 1st dose of the Covid vaccine, March 20, 2020 Last tetanus immunization: November 05, 2012 Pneumococcal vaccine is up to date, Flu vaccine is up to date. - Infectious Disease History:: Denies. Denies. - Social history:: Smoking status: Patient denies any tobacco usage or history of. Smoking status: Patient denies any tobacco usage or history of. - Family history:: not pertinent. - Hospitalizations: : No recent hospitalization is reported. ROS: 13:33 Constitutional: Negative for fever, chills, and weight loss, Neck: Negative for injury, rn pain, and swelling, Cardiovascular: Negative for chest pain, palpitations, and edema, Respiratory: Negative for shortness of breath, cough, wheezing, and pleuritic chest pain, Abdomen/GI: Negative for abdominal pain, nausea, vomiting, diarrhea, and constipation, Back: Negative for injury and pain, : Negative for injury, bleeding, discharge, and swelling, MS/Extremity: Negative for injury and deformity, Skin: Negative for injury, rash, and discoloration, Neuro: Negative for headache, numbness, tingling, and seizure, Exam: 13:33 Constitutional: This is a well developed, well nourished patient who is awake, alert, rn and in no acute distress. Head/Face: Normocephalic, atraumatic. ENT: Moist mucous membranes Cardiovascular: Regular rate and rhythm. No pulse deficits. Respiratory: No increased work of breathing, no retractions or nasal flaring. Abdomen/GI: Soft, non-tender MS/ Extremity: Pulses equal, no cyanosis. Neurovascular intact. Full, normal range of motion. Equal circumference. Neuro: Awake and alert, GCS 15, oriented to person, place, not time. Cranial nerves II-XII grossly intact. Motor strength 4/5 in all extremities. Sensory grossly intact. 15:41 ECG was reviewed by the Attending Physician. rn Vital Signs: 10:41 BP 131 / 68; Pulse 73; Resp 17; Temp 97.2(O); Pulse Ox 94% on R/A; Weight 80.29 kg; nj1 Height 5 ft. 4 in. ; 10:41 BP 131 / 68; Pulse 71; Resp 17; Pulse Ox 97% ; dd2 11:30 BP 145 / 58; Pulse 72; Resp 17; Pulse Ox 97% ; dd2 12:22 BP 149 / 64; Pulse 74; Resp 16; Pulse Ox 96% ; dd2 13:41 BP 144 / 57; Pulse 71; Resp 16; Pulse Ox 97% ; dd2 15:10 BP 143 / 56; Pulse 75; Resp 15; Pulse Ox 96% ; dd2 10:41 Body Mass Index 30.38 (80.29 kg, 162.56 cm) nj1 MDM: 10:39 Patient medically screened. rn 14:09 Data reviewed: vital signs, nurses notes, lab test result(s), radiologic studies, CT rn scan, and as a result, I will admit patient. Consideration of Admission/Observation Patient was admitted/placed on observation. Escalation of care including admission/observation considered. Counseling: I had a detailed discussion with the patient and/or guardian regarding the historical points, exam findings, and any diagnostic results supporting the discharge/admit diagnosis, lab results, radiology results, the need for further work-up and treatment in the hospital. Response to treatment: the patient's symptoms have mildly improved after treatment, and as a result, I will admit patient. 09/23 10:57 Order name: CBC with Diff; Complete Time: 11:58 rn 09/23 10:57 Order name: Basic Metabolic Panel; Complete Time: 11:58 rn 09/23 10:57 Order name: Urinalysis w/ reflexes; Complete Time: 14:01 rn 09/23 10:57 Order name: Magnesium; Complete Time: 11:58 rn 09/23 13:40 Order name: Urine Culture EDMN 09/23 10:57 Order name: CT Head Brain wo Cont; Complete Time: 11:58 rn 09/23 15:09 Order name: CONS Physician Consult [facility] 09/23 10:57 Order name: IV Start; Complete Time: 12:01 rn 09/23 10:57 Order name: Cardiac monitoring; Complete Time: 11:00 rn 09/23 10:57 Order name: O2 Sat Monitoring; Complete Time: 11:00 rn 09/23 10:57 Order name: EKG - Nurse/Tech; Complete Time: 12:01 rn EC:41 Rate is 70 beats/min. Rhythm is regular. QRS [place] is Normal. [place] interval is normal. QRS rn interval is normal. QT interval is normal. No Q waves. T waves are Normal. No ST changes noted. Clinical impression: Normal ECG. Interpreted by me. Reviewed by me. Administered Medications: 14:25 Drug: Rocephin IV 1 grams IV at calculated rate once; Given slow IV push per pharmacy dd2 instructions Route: IV; Rate: calculated rate; Site: right antecubital; 14:40 Follow up: Response: No adverse reaction; IV Status: Completed infusion; IV Intake: [id number] Disposition Summary: 09/24/23 14:15 Hospitalization Ordered Notes: Hospitalization Status: Inpatient Admission rn Provider: Nato Menard rn Location: Telemetry/MedSurg (Inpatient) rn Condition: Stable rn Problem: new rn Symptoms: have improved rn Bed/Room Type: Standard rn Room Assignment: 202(09/24/23 15:33) ja1 Diagnosis - Altered mental status, unspecified rn - UTI/ Urinary tract infection, site not specified rn Forms: - Medication Reconciliation Form rn - SBAR form rn - Leadership Thank You Letter rn Signatures: Dispatcher [facility] Jeffrey Eckert MD MD rn Aguilar, Jose RN RN ja1 Zhanna Yadav Kathy, RN RN ko1 Tara Fenton RN RN nj1 JILLIAN RIOS RN RN dd2 Corrections: (The following items were deleted from the chart) 10:58 10:58 CBC+H.LAB.BRZ ordered. EDMS EDMS 10:58 10:58 BASIC METABOLIC PANEL+C.LAB.BRZ ordered. EDMS EDMS 10:58 10:58 Urinalysis+U.LAB.BRZ ordered. EDMS EDMS 10:58 10:58 MAGNESIUM+C.LAB.BRZ ordered. EDMS EDMS 10:58 10:58 Head Brain Wo Cont+CT.RAD.BRZ ordered. EDMS EDMS 15:16 14:15 rn eb 15:33 15:16 406 eb ja1
[2023-09-24] MEDS ORDERED: ACETAMINOPHEN 500 MG TAB PO PRN (15:59)
[2023-09-24] MEDS ORDERED: ONDANSETRON 4 MG/2 ML VIAL IV PRN (15:59)
[2023-09-24 16:09] VITALS: BMI 30.2
[2023-09-24] MEDS: INSULIN REGULAR (HUMAN) 100 UNIT/ML SQ SCH (16:30)
[2023-09-24] MEDS: METFORMIN HCL 500 MG TAB PO SCH (17:06)
[2023-09-24] MEDS: METOPROLOL XL 50 MG TAB PO SCH (20:31)
[2023-09-24] MEDS: MEMANTINE HCL 10 MG TABLET PO SCH (20:31)
[2023-09-24] MEDS: ATORVASTATIN 40 MG TAB PO SCH (20:31)
[2023-09-24] MEDS: CEFTRIAXONE 1,000 MG in NA CHLORIDE 0.9% 50 ML IVPB SCH (23:02)
[2023-09-25] MEDS: LEVOTHYROXINE SOD 0.088 MG TAB PO SCH (05:30)
[2023-09-25] MEDS: PANTOPRAZOLE 40MG TABLET PO SCH (05:30)
[2023-09-25 05:46] LABS: Absolute Eosinophils 0.2 K/uL (0-0.5); Absolute Lymphocytes (CBC) 0.8 K/uL (0.7-4.9); Absolute Monocytes 0.2 K/uL (0.1-1.3); Absolute Neutrophil 2.2 K/uL (1.8-8.0); Basophils % 0.9 % (0-1.3); Eosinophils % 4.8 % (0-4.4); Lymphocytes % 23.1 % (15.3-44.8); MCH 29.9 pg (27.0-35.0); MCHC 34.1 g/dL (32.0-36.0); MCV 87.6 fL (80-100); MPV 7.9 fL (7.6-11.3); Monocytes % 5.5 % (3.3-12.3); Neutrophils % 65.7 % (41.7-73.7); Nucleated Red Blood Cells % 0.3 % (0-0); Platelets 137 thou/uL (152-406); RBC Red Blood Cell Count 4.34 M/uL (3.86-4.86); Red Cell Distribution Width 17.2 % (12.1-15.2)
[2023-09-25 06:02] LABS: Anion Gap 10.3 mEq/L (5.0-15.0); Potassium 3.3 mEq/L (3.5-5.1)
[2023-09-25] MEDS: NYSTATIN 100MU/GM CREAM 15GM TOP SCH (09:00)
[2023-09-25] MEDS: ASPIRIN EC 81 MG TAB PO SCH (09:02)
[2023-09-25] MEDS: DONEPEZIL HCL 5 MG TAB PO SCH (09:03)
[2023-09-25] MEDS: AMLODIPINE 5 MG TAB PO SCH (09:03)
[2023-09-25] MEDS: DULOXETINE 30 MG CAP PO SCH (09:03)
[2023-09-25 09:45] VITALS: O2SAT 93
[2023-09-25] MEDS: CIPROFLOXACIN HCL 500 MG TAB PO ONE (11:21)
[2023-09-25 12:27] VITALS: BP 141/65; TEMP 97.3
--- NOTE | 2023-09-25 13:46 | EKG ---
Test Date: 2023-09-24 Test Time: 11:56:22 Hydraulic Operator: JUNIOR MEASUREMENT RESULTS: Intervals: Rate: 70 [place]: 130 QRSD: 78 QT: 410 QTc: 442 [place]: P: 23 [place]: 130 QRS: 65 T: 47 INTERPRETIVE STATEMENTS: Normal sinus rhythm Normal ECG Compared to ECG 09/24/2023 11:55:19 Junctional rhythm no longer present Electronically Signed On 09-25-23 13:44:33 CDT by Stoney Mcdonald
--- NOTE | 2023-09-25 13:47 | EKG ---
Test Date: 2023-09-24 Test Time: 11:55:19 Squirt Machine Operator: JUNIOR MEASUREMENT RESULTS: Intervals: Rate: 65 [place]: QRSD: 80 QT: 424 QTc: 440 [place]: P: [place]: QRS: 61 T: 41 INTERPRETIVE STATEMENTS: Sinus rhythm normal ECG Electronically Signed On 09-25-23 13:44:52 CDT by Stoney Mcdonald
--- NOTE | 2023-09-25 22:15 | CON ---
Reason For Consultation: Consultation called because of altered mental status. History Of Present Illness: Ms. eHck is a 78-year-old patient, who was seen in clinic for Alzheimer' s disease and who recently last [place] began Leqembi for Alzheimer's disease. Her notes that she did begin a medication that started several weeks ago and since then has had possible urinary tr act infections with worsening confusion. Over the last few days, she became more disoriented, confus ed, and was weak all over with some intermittent shaking. She was seen at [facility], evalu ated on 09/23. Her urinalysis was positive for urinary tract infection with turbid clarity, 3+ gluco se, 3+ blood, 2+ nitrites, 500 esterase, greater than 50 red blood cells, greater than 50 white blood cells, many clumps of white blood cells, greater than 50 bacteria, blood 3+, protein 1+. She receiv ed Rocephin per protocol and was actually in the hospital not able to continue the Rocephin as overni ght she pulled out her IV. She was switched to oral ciprofloxacin 500 mg twice daily per Dr. Menard. Please note, at the time of my evaluation, she appeared to be back to her baseline after receiving th e antibiotics. In addition, her blood sugars were somewhat uncontrolled rating to 235 and her potass ium was hypokalemic at 3.3 that was replaced. Past Medical History: Alzheimer's disease, rec-[id number] diabetes mellitus, hypertension, tr ansient ischemic attack, hypothyroidism, depression, arthritis, left trigeminal neuralgia, and hemorr hagic pancreatitis. Past Surgical History: Appendectomy, tonsillectomy, hysterectomy, bunionectomy, cholecystectomy, bon e spur removal, abdominoplasty, breast reduction, cataract surgery. Family History: Noncontributory. Medications: At home, Prilosec 40 mg daily, levothyroxine 88 mcg daily, metoprolol 25 mg daily, amlo dipine 5 mg daily, metformin 500 mg twice daily, aspirin 81 mg daily, Cymbalta 30 mg daily, Lipitor 4 0 mg daily, donepezil 20 mg daily, memantine 10 mg daily, and recently started Leqembi infusions ever y 2 weeks. Review of Systems: As noted, some confusion, disorientation, diffuse weakness and shaking that has worsened with urinary tract infection and increased urinary frequency and urgency. Physical Examination: Vital Signs: Blood pressure 141/65, pulse 71, respiratory rate 12, temperature 97.3, oxygen saturati on 95%. General: Ms. Heck is sitting in room. Her good friend was at the bedside and I also spoke with her . HEENT: She appears normocephalic, atraumatic. Sclerae anicteric. Oropharynx pink and moist. Neck: Supple. Chest: Clear. Heart: Regular. Extremities: Show no significant clubbing, cyanosis, or edema. Neurologic: She is alert and oriented to person, situation, and place. Follows commands appropriate ly. Cranial nerves show no focal deficits. Motor, coordination, sensation examinations show no foca l deficits. She was evaluated by the Physical Therapy Service, was able ambulate with guidance using a front wheel walker, covered 250 feet with some shuffling and able to respond to reminders and cues and she was discharged again home from physical therapy and may continue outpatient as appropriate. Assessment: Ms. Heck is a 78-year-old patient with Alzheimer's disease and multiple medical problems as noted. She had urinary tract infection that cause worsening diffuse weakness, confusion, tremors which is now improving. Plan: 1.She will continue antibiotics per Dr. Menard. 2.She will continue with Leqembi infusions every 2 weeks. 3.Continue with Namenda as indicated. 4.Continue with donepezil. 5.Continue with aspirin. 6.Continue aggressive management of diabetes mellitus and hypertension. She will follow up in Dr. Merlos's clinic within the month as noted. AVA/MELO Voice ID: [id number] Report ID: [id number]
--- NOTE | 2023-09-26 06:45 | SS ---
Date of Discharge: 09/25/2023 Chief Complaint: Weakness and trouble walking. History Of Present Illness: This is a 78-year-old very pleasant white female patient who is in the c are of Dr. Merlos for dementia problem, recently had IV infusion treatment with her first dose last week on Monday. After the infusion while patient was waiting at the [facility] in [place], marya turner actually felt very weak where she had hard time getting up and with that she was sent to emergency room in [place], where CAT scan of the head was done, blood work was done, urinalysis was done and a ll these test results came back unremarkable. So, the patient was discharged to go home. The patien lily lives at home with her and reported that she continued to have weakness and he had to help her in a wheelchair at home and during nighttime a couple of times while was sleeping in the same bed as patient, he ended up finding her next to the bed on the floor as patient probably attempted to get out of the bed and because of her weakness, she was not able to ambulate safely. N ext day, which is on Monday, the patient continued to have this problem and that is why he brought her to emergency room, and after she was evaluated in the emergency room, workup was done and I was c ontacted requesting admission to our hospital. Allergies: TO MORPHINE CAUSING NAUSEA AND VOMITING, REGLAN CAUSING STOMACH PAIN AND VOMITING. Medications: Aspirin 81 mg daily; amlodipine 5 mg daily; atorvastatin 40 mg daily in the evening; do nepezil 23 mg daily; memantine 10 mg 2 times a day; duloxetine 30 mg daily; iron 65 mg daily; levothy roxine 88 mcg daily; metformin 500 mg, she takes 1-1/2 tab 2 times a day; metoprolol succinate 25 mg 2 times a day; omeprazole 40 mg daily. Review of Systems: Constitutional: As mentioned above. ARMATURE WINDER REPAIR: As mentioned above. All other systems reviewed and negative. Past Medical History: Significant for hypertension, hyperlipidemia, gastroesophageal reflux disease, senile dementia, mixed hyperlipidemia, hypothyroidism, coronary artery disease, type 2 diabetes christina itus, and anemia. Past Surgical History: Significant for cataract surgery, tonsillectomy, cholecystectomy, appendectom y, hysterectomy, foot surgery, removal of basal cell carcinoma, breast reduction with abdominoplasty. Family History: Father ; had Alzheimer's disease, congestive heart failure, diabetes, and hypert ension. Mother had asthma, rheumatoid arthritis, and thyroid disorder. Brother has asthma, arthriti s, and thyroid disorder. Social History: Negative for smoking. Use of alcohol very rarely. Physical Examination: Vital Signs: Height 5 feet 4 inches, weight 176 pounds. Upon admission, temperature was 97.7, pulse 68, respiratory rate 19, blood pressure was 147/65, oxygen saturation 95%. General: Awake, alert, oriented, not in distress. HEENT: Head atraumatic, normocephalic. Conjunctivae nonerythematous. Sclerae white. Mouth, no thr ush or edema noted. Ears/Nose, no mass, lesion, discharge noted. Neck: Supple. No JVD, lymph nodes, bruit, thyromegaly noted. Lungs: Bilateral good equal air entry. Clear to auscultation. No rhonchi. No rales. Heart: Normal heart sounds, no murmur or gallop. Abdomen: Soft, bowel sounds normal. No guarding, rigidity, tenderness, mass, hepatosplenomegaly, dis tention, or bruit noted. Extremities: No leg edema. No calf tenderness. Skin: No rash, ulcer, cellulitis. Lymphatics: No lymph node enlargement in neck, supraclavicular, infraclavicular region. Chest: Unremarkable. External Genitalia: Deferred. Rectal: Deferred. ARMATURE WINDER REPAIR: The patient is awake, alert, follows simple commands. Not able to answer questions with any pe rtinent details, but she is able to follow simple commands. There are no focal neurologic deficits n oted. Laboratory Data: Yesterday, white count 4.5, hemoglobin 13.1, platelets 130. Today, white count 3.4 , hemoglobin 13, platelets 137. Her chemistry yesterday: Sodium 137, potassium 3.4, chloride 104, b icarb 28, BUN 11, creatinine 0.72, glucose 235, magnesium 1.6. Today, sodium 140, potassium 3.3, chl oride 106, bicarb 27, BUN 6, creatinine 0.48, glucose 151. CAT scan of the head was negative for any acute intracranial changes. Urinalysis was abnormal consistent with urinary tract infection and nidia ws leukocyte esterase 500, WBC more than 50, RBC more than 50, and bacteria more than 50. Hospital Course: After patient was evaluated in the emergency room, she was admitted to our hospital for further evaluation and management of this problem. Neurologist, Dr. Merlos, was consulted and the patient's has informed me that they actually have an outpatient appointment to see him t omorrow, which is on Tuesday, September 26, 2023. We have not seen any evidence of any intracranial hem orrhage and the patient does have urinary tract infection. She was started on empiric antibiotic, wh ich was ceftriaxone, and today, Physical Therapy was consulted. The patient did ambulate very well. The patient was discharged to go home in stable condition with following discharge medications and i nstructions. I did discuss with the patient's her pending test results, which is her urine culture and we will send her home with empiric antibiotic, which will be Cipro, but dependi ng on the urine culture results if we need to change antibiotics, then we will need to handle it as o utpatient, and on rare occasion if the patient needs IV antibiotics for any specific organism, then w e may need to bring her back to the hospital and he understands that. Discharge Medications And Instructions: 1.Continue all prior home medications. 2.Cipro 500 mg 2 times a day for 1 week. 3.Follow up at my office this week on , which is 09/28/2023. 4.Follow with Dr. Merlos tomorrow as per your scheduled appointment. Final Diagnoses: 1.Urinary tract infection. 2.Encephalopathy, toxic. 3.Senile dementia. 4.Hypokalemia. 5.Thrombocytopenia. 6.Hypertension. 7.Mixed hyperlipidemia. 8.Hypothyroidism. 9.Gastroesophageal reflux disease. 10.Type 2 diabetes mellitus. 11.Anemia, unspecified. Total time spent is 90 minutes including communication with ER physician, review of emergency room re cords, review of last office visit record, and performing today's evaluation and management. YURY/MODL Voice ID: [id number] Report ID: [id number]
== END 2023-09-25 16:06 | disposition home or self-care (01) ==
LOC: ER 10:31 → INTOOBSV 15:07 → ERHOLD 15:07 → 2ND 15:44
PROVIDERS: ADMIT Internal Medicine; ATTEND Internal Medicine
DX: N39.0 Urinary tract infection, site not specified (principal); G92.9 Unspecified toxic encephalopathy; G30.9 Alzheimer's disease, unspecified; F02.80 Dementia in other diseases classified elsewhere, unspecified severity, without behavioral disturbance, psychotic disturbance, mood disturbance, and anxiety; E11.9 Type 2 diabetes mellitus without complications; I10 Essential (primary) hypertension; E03.9 Hypothyroidism, unspecified; F32.A Depression, unspecified; K85.90 Acute pancreatitis without necrosis or infection, unspecified; K21.9 Gastro-esophageal reflux disease without esophagitis; E78.2 Mixed hyperlipidemia; I25.10 Atherosclerotic heart disease of native coronary artery without angina pectoris; D64.9 Anemia, unspecified; E87.6 Hypokalemia; D69.6 Thrombocytopenia, unspecified; Z86.73 Personal history of transient ischemic attack (TIA), and cerebral infarction without residual deficits; Z88.5 Allergy status to narcotic agent
CPT/HCPCS: 93005 ×2; 87088; 85025 ×2; 81001; 87086; 80048 ×2; 36415; 83735; 82947 ×3; 70450; 97116; 97161; 97530; 96374; 99285; J0696 ×2; G0378

== ENCOUNTER 2023-10-05 10:56 | Emergency (ER) | payer OTHER ==
--- OUTSIDE RECORDS SUMMARY | 2023-10-05 11:00 | XMS REPORT | Clinical Summary ---
Author Name Unknown Organization [facility] [place] Address [address] [place] [address] Care Team Providers Care Make Up Operator Helper Name Role Phone Kristina Lua MD Primary Care Provider Darrel Menard MD Unavailable [phone] Sylvia Read MD Unavailable + José [...] - 02/13/2008 Bilateral CARDIAC CATHETERIZATION 04/25/2017 [facility] HAND SURGERY Right 5 Broken [...] Used Date Smoking Tobacco: Former Cigarettes 3 61.1 S tarted: 09/13/1962 Smokeless Tobacco: Never Alcohol [...] of 1 - PCV) 012 COVID-19 Vaccine ( - 2022-24 season) 2022 Influenza Vaccine 10/15/2023 Care Teams Make Up Operator Helper Relationship Specialty Start Date End Date Kristina Lua MD [address] [place] [id number] [email or web address] PCP - General Breast Medical Oncology 10/06/16 Darrel Menard MD [address] [place] [phone] [email or web address] PCP - External Follow Up A Internal Medicine 10/18/16 Sylvia Read MD [address] [place] [id number] [email or web address] Consulting Physician Breast Surgery 11/03/17 José Antonio Topete MD [address] [place] [phone] [email or web address] Consulting Physician Rheumatology 05/09/17
--- NOTE | 2023-10-05 11:42 | RAD REPORT ---
EXAM DESCRIPTION: Josefina Single View10/05/2023 11:37 am CLINICAL HISTORY: Cough COMPARISON: 2022 FINDINGS: The lungs appear clear of acute infiltrate. The heart is normal size IMPRESSION: No acute abnormalities displayed
[2023-10-05 12:05] LABS: Absolute Eosinophils 0.1 K/uL (0-0.5); Absolute Lymphocytes (CBC) 1.6 K/uL (0.7-4.9); Absolute Monocytes 0.5 K/uL (0.1-1.3); Absolute Neutrophil 4.4 K/uL (1.8-8.0); Basophils % 0.7 % (0-1.3); Eosinophils % 1.8 % (0-4.4); Hematocrit 40.2 % (36.0-45.0); Hemoglobin 13.1 g/dL (12.0-15.0); Lymphocytes % 24.7 % (15.3-44.8); MCH 29.4 pg (27.0-35.0); MCHC 32.7 g/dL (32.0-36.0); Monocytes % 6.9 % (3.3-12.3); Neutrophils % 65.9 % (41.7-73.7); Platelets 280 thou/uL (152-406); RBC Red Blood Cell Count 4.46 M/uL (3.86-4.86); Red Cell Distribution Width 16.5 % (12.1-15.2)
[2023-10-05 12:12] LABS: Calcium Oxalate Crystals- Ur Few /HPF (None Seen); Specific Gravity 1.026 (1.005-1.030); Sqamous Epithelial <5 /HPF (None Seen); Urine Bacteria <20 /HPF (<20); Urine Bilirubin NEGATIVE (Negative); Urine Blood Negative (Negative); Urine Clarity Extremely Turbid (Clear); Urine Color Yellow (Yellow); Urine Culture Reflex Order NOT NEEDED; Urine Glucose 3+ (Negative); Urine Ketones NEGATIVE (Negative); Urine Micro Reflex YN NO BILL MICROSCOPIC; Urine Mucus 3+ /HPF (None Seen); Urine Nitrite NEGATIVE (Negative); Urine Protein TRACE (Negative); Urine RBC <5 /HPF (None Seen); Urine Urobilinogen Normal (Normal); Urine WBC None Seen /HPF (<5); Urine pH 5.5 (5.0-7.0)
[2023-10-05 12:26] LABS: Anion Gap 10.7 mEq/L (5.0-15.0); Potassium 3.7 mEq/L (3.5-5.1); Troponin High Sensitivity 3.3 pg/mL (<58.9)
--- NOTE | 2023-10-05 14:35 | RAD REPORT ---
EXAM DESCRIPTION: MRI - Brain Wo Cont - 10/05/2023 1:31 pm CLINICAL HISTORY: eval for microhemorrhages, recs from [place];Confused COMPARISON: Head CT 09/24/2023. Prior brain MRI 05/25/2023 TECHNIQUE: Multiplanar multisequence MRI of the brain performed without IV contrast. FINDINGS: Motion artifact somewhat limits evaluation, despite attempts at repeat imaging. No evidence of acute infarct or other diffusion signal abnormality. No evidence of acute intracranial hemorrhage or abnormal extra-axial fluid collections. Mild diffuse parenchymal volume loss. Ventricular caliber is stable. Midline structures are unremarka ble. Stable extent of periventricular and deep white matter T2/FLAIR hyperintensities, nonspecific, but keane ggestive of chronic small vessel ischemic changes. Cavum septum pellucidum anteriorly again seen. No mass effect or midline shift. Major vascular flow voids are preserved. Mastoid air cells and paranasal sinuses are clear. IMPRESSION: No acute intracranial process. No evidence of ventriculomegaly or mass effect Stable burden of nonspecific periventricular and deep white matter T2 hyperintensities, suggestive of chronic small vessel ischemic changes.
--- NOTE | 2023-10-05 14:43 | ER ---
Nurse's Notes [facility] Name: Sultana Heck Age: 78 yrs Sex: Female : 1945 Arrival Date: 10/05/2023 Time: 10:56 Bed 13 Private MD: Diagnosis: Confusional arousals Presentation: 10/04 11:10 Chief complaint: Spouse and/or significant other states: Spouse states pt is here for dd2 an MRI and urine sample before pt has next infusion for dementia. Coronavirus screen: Ebola Screen: No symptoms or risks identified at this time. Initial Sepsis Screen: Does the patient meet any 2 criteria? No. Patient's initial sepsis screen is negative. Does the patient have a suspected source of infection? No. Patient's initial sepsis screen is negative. Risk Assessment: Do you want to hurt yourself or someone else? Patient reports no desire to harm self or others. Onset of symptoms is unknown. 11:10 Method Of Arrival: Ambulatory dd2 11:10 Acuity: DONTE 3 dd2 Triage Assessment: 11:15 General: Appears in no apparent distress. Behavior is calm, cooperative. Pain: Denies dd2 pain. Historical: - Allergies: 11:15 Jardiance (rash); dd2 11:15 Morphine (Upset stomach); dd2 11:15 Reglan (Upset stomach); dd2 - PMHx: 11:15 Arthritis; arthritis in shelby feet; Dementia; Depression; Diabetes - NIDDM; GERD; dd2 hemmoragic pancreatitis; Hyperlipidemia; Hypertension; Hypothyroidism; left trigeminal neuralgia; TIA; - PSHx: 11:15 Appendectomy; back; Bone spur removal; breast reduction; bunionectomy; cataract; dd2 cataracts; Cholecystectomy; hysterectomy; Tonsillectomy; Tummy tuck; - Immunization history:: Adult Immunizations unknown. - Infectious Disease History:: Denies. - Social history:: Smoking status: Patient denies any tobacco usage or history of. Screenin:19 [facility] ED Fall Risk Assessment (Adult) History of falling in the last 3 months, kj2 including since admission No falls in past 3 months (0 pts) Confusion or Disorientation Yes (5 pts) Intoxicated or Sedated No (0 pts) Impaired Gait Yes (1 pt) Mobility Assist Device Used Yes (1 pt) Altered Elimination No (0 pt) Score/Fall Risk Level 3 or more points = High Risk Maintained a safe environment, Educated pt \T\ family on fall prevention, incl call for assistance when getting out of bed, Hourly rounding (assess needs \T\ fall precautionary measures) done, Utilized family, sitter, or virtual cert occupational therapy asst as indicated. Abuse screen: Denies threats or abuse. Denies injuries from another. Nutritional screening: No deficits noted. Tuberculosis screening: No symptoms or risk factors identified. Assessment: 12:00 General: Appears in no apparent distress. comfortable, Behavior is calm, cooperative. kj2 Pain: Denies pain. Neuro: Level of Consciousness is awake, alert, Oriented to person. Cardiovascular: Patient's skin is warm and dry. Respiratory: Airway is patent Respiratory effort is unlabored. Respiratory: No deficits noted. GI: No deficits noted. : No deficits noted. 13:45 Reassessment: Patient appears in no apparent distress at this time. Patient and/or kj2 family updated on plan of care and expected duration. Pain level reassessed. Patient is alert, oriented x 3, equal unlabored respirations, skin warm/dry/pink. Vital Signs: 11:10 BP 134 / 69; Pulse 57; Resp 15; Temp 97.1; Pulse Ox 100% ; dd2 12:18 BP 147 / 57; Pulse 57; Resp 18; Temp 98; Pulse Ox 99% on R/A; kj2 ED Course: 11:00 Patient arrived in ED. mg5 11:10 Abhishek Vaughn MD is Attending Physician. ec2 11:15 Triage completed. dd2 11:15 Arm band placed on right wrist. Patient placed in an exam room, on a stretcher, on dd2 pulse oximetry, Patient notified of wait time. 11:39 XRAY Chest (1 view) In Process Unspecified. EDMS 11:57 Shannon Valenzuela, DEVYN is Primary Nurse. kj2 12:18 No provider procedures requiring assistance completed. Inserted saline lock: 22 gauge kj2 in right wrist, using aseptic technique. Blood collected. Flushed with 10 mL NS. 12:20 Patient has correct armband on for positive identification. Bed in low position. Call kj2 light in reach. Adult w/ patient. Provided Education on: call light, fall precautions. 13:33 MRI - Brain Wo Cont In Process Unspecified. EDMS 14:54 IV discontinued, intact, bleeding controlled, No redness/swelling at site. Pressure iw dressing applied. Administered Medications: No medications were administered Medication: 12:20 VIS not applicable for this client. kj2 Outcome: 14:42 Discharge ordered by . ec2 14:54 Discharged to home ambulatory, with family, iw 14:54 Condition: stable 14:54 Discharge instructions given to patient, family, Instructed on discharge instructions, follow up and referral plans. Demonstrated understanding of instructions, follow-up care, 14:54 Patient left the ED. iw Signatures: Dispatcher [employer] Corazon Hoover, RN RN Xena Jonas mg5 Abhishek Vaughn MD MD ec2 Shannon Valenzuela RN RN kj2 JILLIAN RIOS RN RN dd2
--- NOTE | 2023-10-05 14:43 | EDPHYS ---
Physician Documentation [facility] Name: Sultana Heck Age: 78 yrs Sex: Female : 1945 Arrival Date: 10/05/2023 Time: 10:56 Bed 13 Private MD: ED Physician Abhishek Vaughn HPI: 10/04 11:15 This 78 yrs old Female presents to ER via Unassigned with complaints of ec2 Abnormal Lab Results, Sent By Dr. 11:15 Patient arrives today due to concern for altered mental status. Patient follows with ec2 Dr. Merlos, neurology, patient with history of dementia, worsening mental status change recently. She recent started new medication for dementia, Gaurang was concerned regarding possible microhemorrhages. I spoke with Dr. Merlos prior to arrival, medication specifically associated with microhemorrhages.. Historical: - Allergies: 11:15 Jardiance (rash); dd2 11:15 Morphine (Upset stomach); dd2 11:15 Reglan (Upset stomach); dd2 - PMHx: 11:15 Arthritis; arthritis in shelby feet; Dementia; Depression; Diabetes - NIDDM; GERD; dd2 hemmoragic pancreatitis; Hyperlipidemia; Hypertension; Hypothyroidism; left trigeminal neuralgia; TIA; - PSHx: 11:15 Appendectomy; back; Bone spur removal; breast reduction; bunionectomy; cataract; dd2 cataracts; Cholecystectomy; hysterectomy; Tonsillectomy; Tummy tuck; - Immunization history:: Adult Immunizations unknown. - Infectious Disease History:: Denies. - Social history:: Smoking status: Patient denies any tobacco usage or history of. ROS: 11:15 Constitutional: as per hpi ec2 Exam: 12:11 Constitutional: GEN: NAD Head: atraumatic Eyes: EOMI Ears: External ears are ec2 normal. CV: regular rate LUNGS: no respiratory distress ABD: non-distended SKIN: no evidence of rashes MSK: no evidence of trauma. Neuro, nonfocal exam, confused individual otherwise. Vital Signs: 11:10 BP 134 / 69; Pulse 57; Resp 15; Temp 97.1; Pulse Ox 100% ; dd2 12:18 BP 147 / 57; Pulse 57; Resp 18; Temp 98; Pulse Ox 99% on R/A; kj2 MDM: 11:10 Patient medically screened. ec2 11:18 Data reviewed: vital signs. ED course: Patient arrives today for evaluation of altered ec2 mental status. Discussing with Dr. Merlos, we will obtain MRI brain, will obtain lab work as well as urine studies.. 12:32 ED course: Metabolic profile reassuring. CBC reassuring, urine is noninfectious ec2 appearing. Troponin within normal ranges. Chest x-ray shows no acute intrathoracic process. Pending MRI.. 14:41 ED course: I discussed the case with Dr. Merlos, negative imaging, negative workup, ec2 will follow-up outpatient. Patient discharged home. Return precautions given.. 10/04 11:15 Order name: Basic Metabolic Panel; Complete Time: 12:31 ec2 10/04 11:15 Order name: CBC with Diff; Complete Time: 12:31 ec2 10/04 11:15 Order name: Troponin HS; Complete Time: 12:31 ec2 10/04 11:15 Order name: UAM; Complete Time: 12:31 ec2 10/04 11:15 Order name: XRAY Chest (1 view); Complete Time: 12:31 ec2 10/04 11:15 Order name: MRI - Brain Wo Cont; Complete Time: 14:38 ec2 10/04 11:15 Order name: Cardiac monitoring; Complete Time: 11:58 ec2 10/04 11:15 Order name: EKG - Nurse/Tech; Complete Time: 11:58 ec2 10/04 11:15 Order name: IV Saline Lock; Complete Time: 11:57 ec2 10/04 11:15 Order name: Labs collected and sent; Complete Time: 11:57 ec2 10/04 11:15 Order name: O2 Per Protocol; Complete Time: 11:59 ec2 10/04 11:15 Order name: O2 Sat Monitoring; Complete Time: 11:59 ec2 Administered Medications: No medications were administered Disposition Summary: 10/05/23 14:42 Discharge Ordered Notes: Location: Home ec2 Condition: Stable ec2 Diagnosis - Confusional arousals ec2 Followup: ec2 - With: Private Physician - When: - Reason: Re-evaluation by your physician Discharge Instructions: - Discharge Summary Sheet ec2 - Confusion ec2 Forms: - Medication Reconciliation Form ec2 - Antibiotic Education ec2 - Prescription Opioid Use ec2 - Patient Portal Instructions ec2 - Leadership Thank You Letter ec2 Signatures: Dispatcher [employer] Abhishek Ramirez MD MD ec2 JILLIAN RIOS RN RN dd2 Corrections: (The following items were deleted from the chart) 12:28 11:[address] ec2 kj2
[2023-10-05 15:24] VITALS: BP 147/57; TEMP 98; O2SAT 99
== END 2023-10-05 14:54 | disposition home or self-care (01) ==
LOC: ER 10:56
DX: G47.51 Confusional arousals (principal); E11.9 Type 2 diabetes mellitus without complications; I10 Essential (primary) hypertension; E78.5 Hyperlipidemia, unspecified; E03.9 Hypothyroidism, unspecified; M19.072 Primary osteoarthritis, left ankle and foot; M19.071 Primary osteoarthritis, right ankle and foot; Z86.73 Personal history of transient ischemic attack (TIA), and cerebral infarction without residual deficits; Z88.5 Allergy status to narcotic agent; Z88.8 Allergy status to other drugs, medicaments and biological substances
CPT/HCPCS: 36415; 70551; 71045; 80048; 81001; 84484; 85025; 99284

== ENCOUNTER 2023-11-21 05:59 | Emergency (ER) | payer OTHER ==
--- OUTSIDE RECORDS SUMMARY | 2023-11-21 06:02 | XMS REPORT | Clinical Summary ---
Author Name Unknown Organization [facility] [place] Address [address] [place] [address] Care Team Providers Care Health Care Specialist Name Role Phone Kristina Lua MD Primary Care Provider [phone] Darrel Menard MD Unavailable Sylvia Read MD Unavailable + José Antonio [...] - 02/13/2008 Bilateral CARDIAC CATHETERIZATION 04/25/[address] [facility] HAND SURGERY Right 5 [...] Used Date Smoking Tobacco: Former Cigarettes 3 61.2 S tarted: 09/13/1962 Smokeless Tobacco: Never Alcohol [...] - PCV) 012 COVID-19 Vaccine ( - 2023-25 season) 2023 Influenza Vaccine (#1) 2023 Care Teams Health Care Specialist Relationship Specialty Start Date End Date Kristina Lua MD [facility] [place] [address] [email or web address] PCP - General Breast Medical Oncology 10/06/16 Drarel Menard MD [address] [place] [phone] [email or web address] PCP - External Follow Up A Internal Medicine 10/18/16 Sylvia Read MD [address] [place] [phone] [email or web address] Consulting Physician Breast Surgery 11/03/17 José Antonio Topete MD [address] [place] [phone] [email or web address] Consulting Physician Rheumatology 05/09/17
[2023-11-21] MEDS ORDERED: ONDANSETRON 4 MG/2 ML VIAL ONE (06:26)
[2023-11-21] MEDS ORDERED: NA CHLORIDE 0.9% 1,000 ML ONE (06:26)
[2023-11-21 06:47] LABS: Absolute Eosinophils 0.1 K/uL (0-0.5); Absolute Lymphocytes (CBC) 1.4 K/uL (0.7-4.9); Absolute Monocytes 0.6 K/uL (0.1-1.3); Absolute Neutrophil 3.6 K/uL (1.8-8.0); Basophils % 0.7 % (0-1.3); Eosinophils % 2.3 % (0-4.4); Hematocrit 39.3 % (36.0-45.0); Hemoglobin 13.2 g/dL (12.0-15.0); Lymphocytes % 24.6 % (15.3-44.8); MCH 30.7 pg (27.0-35.0); MCHC 33.7 g/dL (32.0-36.0); MCV 91.3 fL (80-100); MPV 8.6 fL (7.6-11.3); Monocytes % 9.9 % (3.3-12.3); Neutrophils % 62.5 % (41.7-73.7); Platelets 203 thou/uL (152-406); Red Cell Distribution Width 15.4 % (12.1-15.2)
[2023-11-21 06:57] LABS: Albumin 3.5 g/dL (3.4-5.0); Albumin/Globulin Ratio 1.2 (1.1-1.8); Bilirubin Total 0.7 mg/dL (0.2-1.0); Globulin 2.9 g/dL (2.3-3.5); Protein, Total 6.4 g/dL (6.4-8.2)
--- NOTE | 2023-11-21 08:15 | RAD REPORT ---
EXAMINATION: CT ABDOMEN AND PELVIS WITH CONTRAST CLINICAL INDICATION: Abdominal pain TECHNIQUE: CT abdomen and pelvis was performed, after the administration of 100 cc Isovue-300.. Sagit aman and coronal reconstructions were obtained. One or more of the following dose reduction techniques were used: Automated exposure control, adjustment of the mA and/or kV according to patien t size, and/or iterative reconstruction. Unless otherwise specified, incidental findings do not require dedicated imaging follow-up. [id number]. Oral contrast was not given which limits evaluation of b owel and appendix. COMPARISON: 2020 FINDINGS: Cholecystectomy. Liver, spleen, adrenals and kidneys unremarkable. 15 mm low-density structure has developed within the uncinate process of the pancreas. [place]ouns[place] uni t 8. Pancreatic duct normal caliber. Fluid is present throughout the colon related to diarrhea. There is no evidence of diverticulitis Hysterectomy. No adnexal mass Small umbilical hernia. : IMPRESSION: 15 mm low-density structure within the pancreas. It is recommended that patient have a nonemergent MR I with contrast for further evaluation. Fluid throughout the colon related to diarrhea
--- NOTE | 2023-11-21 08:19 | ER ---
Nurse's Notes [facility] Name: Sultana Heck Age: 78 yrs Sex: Female : 1945 Arrival Date: 11/21/2023 Time: 05:59 Bed 17 Private MD: Diagnosis: Diarrhea, abdominal pain Presentation: 11/20 06:03 Chief complaint: EMS states: calls because of persistent diarrhea for 3 days rg5 and its been going for 2 weeks on \T\ off. Coronavirus screen: Client denies travel out of the [place] in the last 14 days. Ebola Screen: Patient negative for fever greater than or equal to 101.5 degrees Fahrenheit, and additional compatible Ebola Virus Disease symptoms. Initial Sepsis Screen: Does the patient meet any 2 criteria? No. Patient's initial sepsis screen is negative. Does the patient have a suspected source of infection? No. Patient's initial sepsis screen is negative. Risk Assessment: Do you want to hurt yourself or someone else? Patient reports no desire to harm self or others. Onset of symptoms was November 21, 2023. 06:03 Method Of Arrival: EMS: [facility] rg5 06:03 Acuity: DONTE 3 rg5 Triage Assessment: 06:07 General: Appears in no apparent distress. Behavior is calm, cooperative, appropriate rg5 for age. Pain: Denies pain. EENT: No deficits noted. Neuro: Level of Consciousness is awake, alert, obeys commands, Oriented to person, place. Cardiovascular: Patient's skin is warm and dry. Respiratory: Airway is patent Trachea midline Respiratory effort is even, unlabored, Respiratory pattern is regular, symmetrical. GI: Reports lower abdominal pain, diarrhea, nausea. : No signs and/or symptoms were reported regarding the genitourinary system. Derm: Skin is intact, Skin is dry, Skin is normal. Musculoskeletal: Circulation, motion, and sensation intact. Range of motion:. Historical: - Allergies: 06:07 Jardiance (rash); rg5 06:07 Morphine (Upset stomach); rg5 06:07 Reglan (Upset stomach); rg5 - Home Meds: 06:07 amlodipine 5 mg tab 1 tab once daily for Hypertension [Active]; aspirin 81 mg Oral chew rg5 1 tab once daily [Active]; Cymbalta 30 mg Oral cpDR 1 cap once daily [Active]; metformin 500 mg Oral Tb24 1 tab 2 times per day [Active]; Prilosec 40 mg Oral cpDR 1 cap 2 times per day [Active]; metoprolol tartrate 25 mg Oral tab 1 tab 2 times per day [Active]; - PMHx: 06:07 Arthritis; Dementia; Diabetes - NIDDM; GERD; Hypertension; TIA; rg5 - PSHx: 06:07 Cholecystectomy; rg5 - Immunization history:: Adult Immunizations unknown. - Infectious Disease History:: Denies. - Social history:: Smoking status: unknown. - Family history:: not pertinent. Screenin:05 [facility] ED Fall Risk Assessment (Adult) History of falling in the last 3 months, rg5 including since admission No falls in past 3 months (0 pts) Confusion or Disorientation No (0 pts) Intoxicated or Sedated No (0 pts) Impaired Gait Yes (1 pt) Mobility Assist Device Used Yes (1 pt) Altered Elimination No (0 pt) Score/Fall Risk Level 0 - 2 = Low Risk Oriented to surroundings, Maintained a safe environment, Hourly rounding (assess needs \T\ fall precautionary measures) done. Abuse screen: Denies threats or abuse. Nutritional screening: No deficits noted. Tuberculosis screening: No symptoms or risk factors identified. Assessment: 06:05 General: Appears in no apparent distress. Behavior is calm, cooperative. rg5 06:05 Pain: Denies pain. Neuro: Level of Consciousness is awake, alert, obeys commands, rg5 Oriented to person, place. Cardiovascular: Capillary refill < 3 seconds Patient's skin is warm and dry. Respiratory: Airway is patent Trachea midline Respiratory effort is even, unlabored. GI: Reports diarrhea, nausea. : No signs and/or symptoms were reported regarding the genitourinary system. EENT: No deficits noted. Derm: Skin is intact, Skin is dry, Skin is normal, Skin temperature is cool. Musculoskeletal: Circulation, motion, and sensation intact. Range of motion: intact in all extremities. 07:28 Reassessment: Patient appears in no apparent distress at this time. Patient and/or db family updated on plan of care and expected duration. Pain level reassessed. General: Appears in no apparent distress. 08:30 Reassessment: Patient appears in no apparent distress at this time. Patient and/or db family updated on plan of care and expected duration. Pain level reassessed. Vital Signs: 06:03 BP 134 / 59; Pulse 59; Resp 17; Temp 98(O); Pulse Ox 96% on R/A; Weight 75 kg; Height 5 rg5 ft. 4 in. ; Pain 0/10; 06:05 BP 134 / 59; Pulse 59; Resp 17; Temp 98(O); Pulse Ox 96% on R/A; Pain 0/10; rg5 07:00 BP 129 / 49; Pulse 64; Resp 18; Pulse Ox 96% on R/A; db 08:30 BP 128 / 43; Pulse 60; Resp 18; Pulse Ox 95% ; db 06:03 Body Mass Index 28.38 (75.00 kg, 162.56 cm) rg5 06:03 Pain Scale: Adult rg5 06:05 Pain Scale: Adult rg5 Dolores Coma Score: 06:05 Eye Response: spontaneous(4). Motor Response: obeys commands(6). Verbal Response: rg5 oriented(5). Total: 15. ED Course: 06:02 Patient arrived in ED. lg3 06:02 Brendon Beard MD is Attending Physician. rt 06:03 Sachin Bettencourt, DEVYN is Primary Nurse. rg5 06:05 Patient has correct armband on for positive identification. Bed in low position. Call rg5 light in reach. Side rails up X 1. Adult w/ patient. Client placed on continuous cardiac and pulse oximetry monitoring. NIBP monitoring applied. cafeteria monitor on. Door closed. Noise minimized. Warm blanket given. Verbal reassurance given. 06:05 No provider procedures requiring assistance completed. Inserted saline lock: 20 gauge rg5 in right forearm, using aseptic technique. Blood collected. Flushed with 10 mL NS. 06:07 Triage completed. rg5 06:07 Arm band placed on right wrist. rg5 06:46 Awaiting lab results. rg5 07:07 Attending Physician role handed off by Brendon Beard MD sp3 07:07 Deidra Worthington MD is Attending Physician. sp3 07:[address] via stretcher. db 07:55 CT Abd/Pelvis - IV Contrast Only In Process Unspecified. EDMS 08:55 Provided Education on: DISCHARGE AND FOLLOWUP. db 08:55 IV discontinued, intact, bleeding controlled, No redness/swelling at site. db Administered Medications: 06:15 Drug: NS 0.9% IV 1000 ml IV at 1 bolus Per protocol; 1000 mL bolus Route: IV; Rate: 1 rg5 bolus; Site: right forearm; 07:30 Follow up: Response: No adverse reaction; IV Status: Completed infusion; IV Intake: db 1000ml 06:15 Drug: Ondansetron IVP 4 mg IVP once; over 2 minutes Route: IVP; Site: right forearm; rg5 07:06 Follow up: Response: No adverse reaction rg5 08:26 Drug: Potassium PO Effervescent Tablet 50 mEq PO once; dissolve in 4 ounces of water or db juice Route: PO; 08:50 Follow up: Response: No adverse reaction db Medication: 06:05 VIS not applicable for this client. rg5 Intake: 07:30 IV: 1000ml; Total: 1000ml. db Outcome: 08:18 Discharge ordered by . sp3 08:55 Discharged to home via wheelchair, with family, db 08:55 Condition: stable 08:55 Discharge instructions given to patient, family, Instructed on discharge instructions, follow up and referral plans. Prescriptions given X 2, 09:02 Patient left the ED. db Signatures: Dispatcher [employer] EDMS Denise Garcia RN RN 3 Deidra Worthington MD MD sp3 Ernestina Hughes RN RN db Brendon Beard MD MD rt Sachin Bettencourt RN RN rg5 Corrections: (The following items were deleted from the chart) 06:09 06:07 PMHx: Hyperlipidemia; rg5 rg5 06: 06:07 PMHx: Hypothyroidism; rg5 rg5 06: 06:07 PMHx: hemmoragic pancreatitis; rg5 rg5 06: 06:07 PMHx: arthritis in shelby feet; rg5 rg5 06: 06:07 PMHx: Depression; rg5 rg5 06: 06:07 PMHx: left trigeminal neuralgia; rg5 rg5 06: 06:07 PSHx: Appendectomy; rg5 rg5 06: 06:07 PSHx: Tonsillectomy; rg5 rg5 06: 06:07 PSHx: hysterectomy; rg5 rg5 06:09 06:07 PSHx: back; rg5 rg5 : 06:07 PSHx: cataracts; rg5 rg5 : 06:07 PSHx: bunionectomy; rg5 rg5 06:07 PSHx: Bone spur removal; rg5 rg5 : 06:07 PSHx: Tummy tuck; rg5 rg5 : 06:07 PSHx: breast reduction; rg5 rg5 06:07 PSHx: cataract; rg5 rg5
--- NOTE | 2023-11-21 08:19 | EDPHYS ---
Physician Documentation [facility] Name: Sultana Heck Age: 78 yrs Sex: Female : 1945 Arrival Date: 11/21/2023 Time: 05:59 Bed 17 Private MD: ED Physician Deidra Worthington HPI: 11/20 06:13 This 78 yrs old Female presents to ER via EMS with complaints of Diarrhea, Abdominal rt Pain. 06:13 Patient presents to the ED with intermittent nonbloody nonmelanotic diarrhea for the rt past 2 weeks. The patient developed a left lower quadrant pain overnight prompting her to come to the ED for further evaluation. Only reports and nausea currently. No episodes of vomiting. Denies any current abdominal pain. Symptoms are moderate in severity, no other aggravating or alleviating factors.. Historical: - Allergies: 06:07 Jardiance (rash); rg5 06:07 Morphine (Upset stomach); rg5 06:07 Reglan (Upset stomach); rg5 - Home Meds: 06:07 amlodipine 5 mg tab 1 tab once daily for Hypertension [Active]; aspirin 81 mg Oral chew rg5 1 tab once daily [Active]; Cymbalta 30 mg Oral cpDR 1 cap once daily [Active]; metformin 500 mg Oral Tb24 1 tab 2 times per day [Active]; Prilosec 40 mg Oral cpDR 1 cap 2 times per day [Active]; metoprolol tartrate 25 mg Oral tab 1 tab 2 times per day [Active]; - PMHx: 06:07 Arthritis; Dementia; Diabetes - NIDDM; GERD; Hypertension; TIA; rg5 - PSHx: 06:07 Cholecystectomy; rg5 - Immunization history:: Adult Immunizations unknown. - Infectious Disease History:: Denies. - Social history:: Smoking status: unknown. - Family history:: not pertinent. ROS: 06:13 Constitutional: Negative for fever, chills, and weight loss, Cardiovascular: Negative rt for chest pain, palpitations, and edema, Respiratory: Negative for shortness of breath, cough, wheezing, and pleuritic chest pain, MS/Extremity: Negative for injury and deformity, Skin: Negative for injury, rash, and discoloration, Neuro: Negative for headache, weakness, numbness, tingling, and seizure, 06:13 Abdomen/GI: Positive for abdominal pain, nausea, diarrhea, Exam: 06:13 Constitutional: This is a well developed, well nourished patient who is awake, alert, rt and in no acute distress. Head/Face: Normocephalic, atraumatic. Chest/axilla: Normal chest wall appearance and motion. Nontender with no deformity. No lesions are appreciated. Cardiovascular: Regular rate and rhythm with a normal S1 and S2. No gallops, murmurs, or rubs. Normal PMI, no JVD. No pulse deficits. Respiratory: Lungs have equal breath sounds bilaterally, clear to auscultation and percussion. No rales, rhonchi or wheezes noted. No increased work of breathing, no retractions or nasal flaring. Abdomen/GI: Soft, non-tender, with normal bowel sounds. No distension or tympany. No guarding or rebound. No evidence of tenderness throughout. Skin: Warm, dry with normal turgor. Normal color with no rashes, no lesions, and no evidence of cellulitis. MS/ Extremity: Pulses equal, no cyanosis. Neurovascular intact. Full, normal range of motion. Neuro: Awake and alert, GCS 15, oriented to person, place, time, and situation. Cranial nerves II-XII grossly intact. Motor strength 5/5 in all extremities. Sensory grossly intact. Cerebellar exam normal. Normal gait. Vital Signs: 06:03 BP 134 / 59; Pulse 59; Resp 17; Temp 98(O); Pulse Ox 96% on R/A; Weight 75 kg; Height 5 rg5 ft. 4 in. ; Pain 0/10; 06:05 BP 134 / 59; Pulse 59; Resp 17; Temp 98(O); Pulse Ox 96% on R/A; Pain 0/10; rg5 07:00 BP 129 / 49; Pulse 64; Resp 18; Pulse Ox 96% on R/A; db 08:30 BP 128 / 43; Pulse 60; Resp 18; Pulse Ox 95% ; db 06:03 Body Mass Index 28.38 (75.00 kg, 162.56 cm) 5 06:03 Pain Scale: Adult rg5 06:05 Pain Scale: Adult rg5 Phoenix Coma Score: 06:05 Eye Response: spontaneous(4). Motor Response: obeys commands(6). Verbal Response: rg5 oriented(5). Total: 15. MDM: 06:02 Patient medically screened. rt 08:17 ED course: Patient taken over by me by night physician. 78-year-old female with PMH sp3 above now with diarrhea and mild lower abdominal cramping. CT scan demonstrates no significant findings other than pancreatic cyst which will be evaluated outpatient by PCP via MRI. Laboratory values without significant findings other than low potassium which will be replenished. Patient will be sent home on antibiotics and follow-up with PCP.. 11/20 06:03 Order name: CBC with Diff; Complete Time: 08:17 rt 11/20 06:03 Order name: CMP; Complete Time: 08:17 rt 11/20 06:03 Order name: Lipase; Complete Time: 08:17 rt 11/20 06:03 Order name: CT Abd/Pelvis - IV Contrast Only; Complete Time: 08:17 rt 11/20 06:03 Order name: IV Saline Lock; Complete Time: 06:22 rt 10 06:03 Order name: Labs collected and sent; Complete Time: 06:22 rt Administered Medications: 06:15 Drug: NS 0.9% IV 1000 ml IV at 1 bolus Per protocol; 1000 mL bolus Route: IV; Rate: 1 rg5 bolus; Site: right forearm; 07:30 Follow up: Response: No adverse reaction; IV Status: Completed infusion; IV Intake: db 1000ml 06:15 Drug: Ondansetron IVP 4 mg IVP once; over 2 minutes Route: IVP; Site: right forearm; rg5 07:06 Follow up: Response: No adverse reaction rg5 08:26 Drug: Potassium PO Effervescent Tablet 50 mEq PO once; dissolve in 4 ounces of water or db juice Route: PO; 08:50 Follow up: Response: No adverse reaction db Disposition Summary: 11/21/23 08:18 Discharge Ordered Notes: Location: Home sp3 Condition: Stable sp3 Diagnosis - Diarrhea, abdominal pain sp3 Followup: sp3 - With: Private Physician - When: Upon discharge from the Emergency Department - Reason: Continuance of care Discharge Instructions: - Discharge Summary Sheet sp3 - Diarrhea, Adult sp3 Forms: - Medication Reconciliation Form sp3 - Antibiotic Education sp3 - Prescription Opioid Use sp3 - Patient Portal Instructions sp3 - Leadership Thank You Letter sp3 Prescriptions: - Flagyl 500 mg Oral tablet - take 1 tablet ORAL route every 8 hours for 7 days; 21 tablet; Refills: 0, sp3 Product Selection Permitted - Cipro 500 mg Oral Tablet - take 1 tablet ORAL route every 12 hours for 7 days; 14 tablet; Refills: 0, sp3 Product Selection Permitted Signatures: Dispatcher [employer] EDMS Deidra Worthington MD MD sp3 Ernestina Hughes RN RN db Brendon Beard MD MD rt Scahin Bettencourt RN RN rg5 Corrections: (The following items were deleted from the chart) 06:04 06:04 CBC+H.LAB.BRZ ordered. EDMS EDMS 06:04 06:04 COMPREHENSIVE METABOLIC PANEL+C.LAB.BRZ ordered. EDMS EDMS 06:04 06:04 LIPASE+C.LAB.BRZ ordered. EDMS EDMS 06:04 06:04 Urinalysis+U.LAB.BRZ ordered. EDMS EDMS 06:04 06:04 Abdomen Pelvis W Con+CT.RAD.BRZ ordered. EDMS EDMS 06:09 06:07 PMHx: Hyperlipidemia; [facility] 06: 06:07 PMHx: Hypothyroidism; [facility] 06: 06:07 PMHx: hemmoragic pancreatitis; [facility] 06: 06:07 PMHx: arthritis in shel[place] feet; 5 5 06: 06:07 PMHx: Depression; 5 5 06: 06:07 PMHx: left trigeminal neuralgia; [facility] 06: 06:07 PSHx: Appendectomy; 5 5 06: 06:07 PSHx: Tonsillectomy; 5 rg5 06: 06:07 PSHx: hysterectomy; [facility] 06: 06:07 PSHx: back; [facility] 06: 06:07 PSHx: cataracts; [facility] 06: 06:07 PSHx: bunionectomy; [facility] rg5 06: 06:07 PSHx: Bone spur removal; [facility] 06: 06:07 PSHx: Tummy tuck; [facility] 06: 06:07 PSHx: breast reduction; [facility] rg5 06:09 06:07 PSHx: cataract; rg5 rg5
[2023-11-21] MEDS ORDERED: POTASSIUM 25 MEQ EFFERV TAB ONE (08:25)
== END 2023-11-21 09:02 | disposition home or self-care (01) ==
LOC: ER 05:59
DX: R19.7 Diarrhea, unspecified (principal); E11.9 Type 2 diabetes mellitus without complications; I10 Essential (primary) hypertension; Z79.82 Long term (current) use of aspirin
CPT/HCPCS: 96361; 85025; 36415; 83690; 80053; 74177; 96374; 99285; Q9967; J2405; J7030

== ENCOUNTER 2024-01-11 16:17 | Emergency (ER) | payer OTHER ==
--- OUTSIDE RECORDS SUMMARY | 2024-01-11 16:20 | XMS REPORT | Clinical Summary ---
Author Name Unknown Organization [facility] Address [address] [place] [address] Care Team Providers Care Pad Assembler Name Role Phone Kristina Lua MD Primary Care Provider [phone] Darrel Menard MD Unavailable [phone] Sylvia Read MD Unavailable + José Antonio Topete MD Unavailable Allergies Active Allergy Reactions Criticality Noted Date Comments Morphine Sulfate Other (See Comments) 7 Sever vomiting Metoclopramide Hcl Other (See Comments) 017 Nausea, drowsy, stomach cramps Medications atorvastatin (LIPITOR) 20 mg tablet Take 40 [...] capsule Take 50,000 Units by mouth. Active cholecalciferol , vitamin D3, 1,000 units tablet Take 1,000 [...] Date Fatty liver Mass of soft tissue Overview (10/18/2016): Calcified Soft Tissue Masses in the Small [...] - 02/13/2008 Bilateral CARDIAC CATHETERIZATION 04/25/2017 [facility] HAND SURGERY Right 5 Broken [...] Used Date Smoking Tobacco: Former Cigarettes 3 61.3 S tarted: 09/13/1962 Smokeless Tobacco: Never Alcohol Use Standard Drinks/Week Comments Yes 0 (1 standard drink = 0.6 oz pur e alcohol) Comments No Sex and Gender Information Value Date Recorded Sex Assigned at Not on file Legal Sex Female 5:09 PM FAMILY LIVING EDUCATOR Gender Identity Not on file Sexual Orientation Not on file 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 PCP - General Breast Medical Oncology 10/06/16 Darrel Menard MD [address] [place] [phone] [email or web address] PCP - External Follow Up A Internal Medicine 10/18/16 Sylvia Read MD [address] [place] [phone] [email or web address] Consulting Physician Breast Surgery 11/03/17 José Antonio Topete MD [address] [place] [address] [phone] [email or web address] Consulting Physician Rheumatology 05/09/17
--- NOTE | 2024-01-11 16:50 | RAD REPORT ---
EXAMINATION: CT HEAD WITHOUT CONTRAST CT CERVICAL SPINE WITHOUT CONTRAST CLINICAL INDICATION: Female, 78 years old. TRAUMA TECHNIQUE: Axial CT images from the skull base to the vertex without intravenous contrast. Axial CT i mages through the cervical spine were obtained without intravenous contrast. Sagittal and coronal reformatted images were created from the data set. Coronal and sagittal reformatted images were creat ed from the data set. One or more of the following dose reduction techniques were used: Automated exposure control, adjustment of the mA and/or kV according to patient size, and/or iterative reconstr uction. Unless otherwise specified, incidental findings do not require dedicated imaging follow-up. [id number]. COMPARISON: 04/17/2019 FINDINGS: Head: INTRACRANIAL: No acute intracranial hemorrhage. No hydrocephalus. No mass effect or midline shift. Mo derate chronic small vessel ischemic changes. VASCULATURE: No visualized abnormalities in the arteries or dural venous sinuses. SCALP/SKULL: No significant soft tissue or osseous abnormalities. SINUSES: The visualized paranasal sinuses and mastoid air cells are predominantly clear. Cervical spine: ALIGNMENT: The cervical spine has normal alignment without scoliosis or spondylolisthesis. BONE: Vertebral body heights are maintained. No aggressive osseous lesions. DEGENERATIVE CHANGES: Multilevel cervical spondylosis with varying degrees of neural foraminal narrow ing. SOFT TISSUE: No significant abnormalities in the soft tissue of the neck. The visualized lung apices are clear. IMPRESSION: No acute intracranial abnormality. No acute fracture or traumatic malalignment of the cervical spine.
--- NOTE | 2024-01-11 16:58 | RAD REPORT ---
EXAM: CT CHEST, ABDOMEN AND PELVIS WITHOUT CONTRAST CLINICAL INDICATION: Female, 78 years old TRAUMA TECHNIQUE: CT chest, abdomen and pelvis was performed, without IV contrast, as per department protoco l. Axial, sagittal and coronal reconstructions were obtained. One or more of the following dose reduction techniques were used: Automated exposure control, adjustment of the mA and/or kV according to the patient size, and/or iterative reconstruction. Unless otherwise specified, incidental findings do not require dedicated imaging follow-up. [id number]. COMPARISON: 12/30/2020 FINDINGS: The lack of intravenous contrast limits the sensitivity of this exam for evaluation of solid visceral organs, vascular structures, and retroperitoneum. Chest: LOWER NECK/CHEST WALL: Visualized thyroid gland and soft tissues are normal. LUNGS AND AIRWAYS: 4 mm left upper lobe pulmonary nodule is likely benign. Other pulmonary nodules ar e also noted which 4 mm and smaller bilaterally.. PLEURA: No pleural effusion. No pneumothorax. Hemidiaphragms are normally positioned. MEDIASTINUM AND LYMPH NODES: No mediastinal mass or fluid collection. Normal size mediastinal, hilar, and axillary lymph nodes. THORACIC AORTA: Normal caliber and configuration. PULMONARY ARTERIES: Normal caliber. HEART: Multivessel coronary artery disease Abdomen/Pelvis LIVER: Pneumobilia. No focal mass. GALLBLADDER/BILE DUCTS: Cholecystectomy. PANCREAS: No mass, ductal dilation, or cintia-pancreatic fluid. SPLEEN: Normal size. No focal lesion. ADRENALS: Normal; no mass. KIDNEYS AND URETERS: Normal size and contour. No hydronephrosis. GASTROINTESTINAL TRACT: Stomach is non-dilated. Small bowel has normal course and caliber. No colonic wall thickening or pericolonic inflammatory changes. No appendicitis. PERITONEUM: No free fluid. Several calcified but likely benign mesenteric lymph nodes. LYMPH NODES: No lymphadenopathy. ABDOMINAL AORTA AND OTHER VESSELS: Normal caliber aorta and IVC. URINARY BLADDER: Normal contour. REPRODUCTIVE ORGANS: No pathologic process. MUSCULOSKELETAL: No acute or suspicious osseous abnormality. ADDITIONAL FINDINGS: None IMPRESSION: No acute or significant abnormalities in the chest, abdomen, or pelvis. Bilateral 4 mm and smaller pulmonary nodules which are likely benign. If significant risk factors for lung cancer, recommend 12 month follow-up chest CT. If not, no follow-up required.
--- NOTE | 2024-01-11 17:11 | EDPHYS ---
Physician Documentation [facility] Name: Sultana Heck Age: 78 yrs Sex: Female : 1945 Arrival Date: 01/11/2024 Time: 16:17 Bed 2 Private MD: ED Physician Brendon Beard HPI: 01/10 16:32 This 78 yrs old Female presents to ER via EMS with complaints of Fall Injury. rt 16:32 Patient presents to the ED with mechanical fall. Patient reported a witnessed fall when rt she lost her balance, tripping, hitting the side of her ribs onto a table. Patient has a history of advanced dementia, cannot recall the fall. Denies other acute complaints at this time, symptoms are moderate in severity, no other aggravating elevating factors. Of note, the patient has no pain currently or any acute complaints. Historical: - Allergies: 16:26 Jardiance (rash); me1 16:26 Morphine (Upset stomach); me1 16:26 Reglan (Upset stomach); me1 - PMHx: 16:26 Arthritis; Dementia; Diabetes - NIDDM; GERD; Hypertension; TIA; me1 - PSHx: 16:26 Cholecystectomy; me1 - Immunization history:: Adult Immunizations up to date. - Infectious Disease History:: Denies. - Social history:: Smoking status: Patient denies any tobacco usage or history of. ROS: 16:32 Unable to obtain ROS due to baseline dementia, rt Exam: 16:32 Constitutional: This is a well developed, well nourished patient who is awake, alert, rt and in no acute distress. Head/Face: Normocephalic, atraumatic. Chest/axilla: Normal chest wall appearance and motion. Nontender with no deformity. No lesions are appreciated. Cardiovascular: Regular rate and rhythm with a normal S1 and S2. No gallops, murmurs, or rubs. Normal PMI, no JVD. No pulse deficits. Respiratory: Lungs have equal breath sounds bilaterally, clear to auscultation and percussion. No rales, rhonchi or wheezes noted. No increased work of breathing, no retractions or nasal flaring. Abdomen/GI: Soft, non-tender, with normal bowel sounds. No distension or tympany. No guarding or rebound. No evidence of tenderness throughout. Skin: Warm, dry with normal turgor. Normal color with no rashes, no lesions, and no evidence of cellulitis. MS/ Extremity: Pulses equal, no cyanosis. Neurovascular intact. Full, normal range of motion. Neuro: Awake and alert, GCS 15, oriented to person, place, time, and situation. Cranial nerves II-XII grossly intact. Motor strength 5/5 in all extremities. Sensory grossly intact. Cerebellar exam normal. Normal gait. Vital Signs: 16:24 BP 145 / 62; Pulse 66; Resp 17; Temp 98.4; Pulse Ox 94% ; Weight 73.94 kg; Height 5 ft. me1 4 in. ; Pain 4/10; 17:00 BP 129 / 49; Pulse 64; Resp 16; Temp 98.4; Pulse Ox 96% ; me1 16:24 Body Mass Index 27.98 (73.94 kg, 162.56 cm) me1 16:24 Pain Scale: Adult me1 MDM: 16:21 Medical Screening Exam initiated rt 17:10 Differential diagnosis: Rib fracture, contusion. Data reviewed: vital signs, nurses rt notes, radiologic studies. Independent interpretation of the following test(s) in the Emergency Department CT Scan: My interpretation is No pneumothorax seen on interpretation of CT scan images. Test considered but Not performed: Other Details Reported mechanical fall only, no loss of consciousness, EKG, labs are not indicated. Care significantly affected by the following chronic conditions: Dementia. Counseling: I had a detailed discussion with the patient and/or guardian regarding the historical points, exam findings, and any diagnostic results supporting the discharge/admit diagnosis, radiology results, to return to the emergency department if symptoms worsen or persist or if there are any questions or concerns that arise at home, Inform patient of findings of pulmonary nodule, instructed to follow-up with primary care for further surveillance. Response to treatment: the patient's symptoms have markedly improved after treatment. 01/10 16: Order name: CT Head C Spine; Complete Time: 17:00 rt 01/10 16: Order name: CT Chest Abdomen Pelvis W/O Contrast; Complete Time: 17:00 rt Administered Medications: No medications were administered Disposition Summary: 01/11/24 17:10 Discharge Ordered Notes: Location: Home rt Problem: new rt Symptoms: have improved rt Condition: Stable rt Diagnosis - Mechanical fall rt - Pulmonary nodule rt Followup: rt - With: Private Physician - When: 2 - 3 days - Reason: Discharge Instructions: - Discharge Summary Sheet rt - Fall Prevention in the Home, Adult rt - Pulmonary Nodule rt Forms: - Medication Reconciliation Form rt - Antibiotic Education rt - Prescription Opioid Use rt - Patient Portal Instructions rt - Leadership Thank You Letter rt Signatures: Dispatcher [employer] Brendon Donaldson MD MD rt Char Niño, RN RN me1 Corrections: (The following items were deleted from the chart) 16:22 16:22 Head C Spine MPR Wo [id number] ordered. EDMS EDMS
--- NOTE | 2024-01-11 17:11 | ER ---
Nurse's Notes [facility] Name: Sultana Heck Age: 78 yrs Sex: Female : 1945 Arrival Date: 01/11/2024 Time: 16:17 Bed 2 Private MD: Diagnosis: Mechanical fall;Pulmonary nodule Presentation: 01/10 16:24 Chief complaint: EMS states: toned out for trip and fall with c/o pain to right ribs. ak1 Coronavirus screen: Vaccine status: Patient reports receiving the 2nd dose of the covid vaccine. Ebola Screen: No symptoms or risks identified at this time. Initial Sepsis Screen: Does the patient meet any 2 criteria? No. Patient's initial sepsis screen is negative. Does the patient have a suspected source of infection? No. Patient's initial sepsis screen is negative. Risk Assessment: Do you want to hurt yourself or someone else? Patient reports no desire to harm self or others. Onset of symptoms was January 11, 2024 at 15:30. 16:24 Method Of Arrival: EMS: [facility] [place] 16:24 Acuity: DONTE 4 ak1 Triage Assessment: 16:26 General: Appears comfortable, well groomed, well developed, well nourished. General: me1 Behavior is calm, cooperative, appropriate for age. Pain: Complains of pain in right lateral anterior chest Pain does not radiate. Pain currently is 4 out of 10 on a pain scale. Quality of pain is described as aching, Pain began suddenly, 1 hour ago. Is continuous. EENT: No signs and/or symptoms were reported regarding the EENT system. Neuro: Level of Consciousness is awake, alert, obeys commands, confused, Oriented to person. Cardiovascular: Patient's skin is warm and dry. Respiratory: Airway is patent Trachea midline Respiratory effort is even, unlabored, Respiratory pattern is regular, symmetrical. GI: No signs and/or symptoms were reported involving the gastrointestinal system. : No signs and/or symptoms were reported regarding the genitourinary system. Derm: Skin is intact, is healthy with good turgor, Skin is pink, warm \T\ dry. Musculoskeletal: Reports pain in right lateral anterior chest. Injury Description: trip and fall hitting right chest wall on table. c/o pain to right ribs. Historical: - Allergies: 16:26 Jardiance (rash); me1 16:26 Morphine (Upset stomach); me1 16:26 Reglan (Upset stomach); me1 - PMHx: 16:26 Arthritis; Dementia; Diabetes - NIDDM; GERD; Hypertension; TIA; me1 - PSHx: 16:26 Cholecystectomy; me1 - Immunization history:: Adult Immunizations up to date. - Infectious Disease History:: Denies. - Social history:: Smoking status: Patient denies any tobacco usage or history of. Screenin:29 [facility] ED Fall Risk Assessment (Adult) History of falling in the last 3 months, me1 including since admission Yes- single mechanical fall (1 pt) Confusion or Disorientation Yes (5 pts) Intoxicated or Sedated No (0 pts) Impaired Gait No (0 pts) Mobility Assist Device Used No (0 pt) Altered Elimination No (0 pt) Score/Fall Risk Level 0 - 2 = Low Risk Maintained a safe environment, Provided non-skid footwear, Hourly rounding (assess needs \T\ fall precautionary measures) done. Abuse screen: Denies threats or abuse. Nutritional screening: No deficits noted. Tuberculosis screening: No symptoms or risk factors identified. Assessment: 16:29 General: See triage assessment. . me1 Vital Signs: 16:24 BP 145 / 62; Pulse 66; Resp 17; Temp 98.4; Pulse Ox 94% ; Weight 73.94 kg; Height 5 ft. me1 4 in. ; Pain 4/10; 17:00 BP 129 / 49; Pulse 64; Resp 16; Temp 98.4; Pulse Ox 96% ; me1 16:24 Body Mass Index 27.98 (73.94 kg, 162.56 cm) me1 16:24 Pain Scale: Adult me1 ED Course: 16:20 Patient arrived in ED. me1 16:21 Brendon Beard MD is Attending Physician. rt 16:26 Triage completed. me1 16:26 Arm band placed on Patient placed in an exam room. me1 16:29 Patient has correct armband on for positive identification. Bed in low position. Call me1 light in reach. Side rails up X2. Provided Education on: POC. Verbalized understanding. . Client placed on continuous cardiac and pulse oximetry monitoring. NIBP monitoring applied. Pulse ox on. NIBP on. 16:29 No provider procedures requiring assistance completed. me1 16:44 CT Head C Spine In Process Unspecified. EDMS 16:44 CT Chest Abdomen Pelvis W/O Contrast In Process Unspecified. EDMS 17:21 Patient did not have IV access during this emergency room visit. me1 Administered Medications: No medications were administered Medication: 16:29 VIS not applicable for this client. me1 Outcome: 17:10 Discharge ordered by MD. rt 17:21 Discharged to home via wheelchair, with significant other, me1 17:21 Condition: stable 17:21 Discharge instructions given to patient, significant other, Instructed on discharge instructions, follow up and referral plans. Demonstrated understanding of instructions, follow-up care, 17:21 Patient left the ED. me1 Signatures: Dispatcher [employer] EDAK Brendon Beard MD MD rt Char Niño RN RN me1 Corrections: (The following items were deleted from the chart) 16:29 16:26 General: Behavior is calm, cooperative, appropriate for age, me1 me1 16:29 16:26 Neuro: Level of Consciousness is awake, alert, obeys commands, Oriented to me1 person, place, time, situation, Appropriate for age me1
[2024-01-11 18:01] VITALS: TEMP 98.4
[2024-01-11 18:02] VITALS: BP 129/49; O2SAT 96
== END 2024-01-11 17:21 | disposition home or self-care (01) ==
LOC: ER 16:17
DX: R91.1 Solitary pulmonary nodule (principal); W01.190A Fall on same level from slipping, tripping and stumbling with subsequent striking against furniture, initial encounter; E11.9 Type 2 diabetes mellitus without complications; I10 Essential (primary) hypertension
CPT/HCPCS: 70450; 71250; 72125; 74176; 99283